=== PATIENT | female | born 1965 | race Caucasian/White ===

== ENCOUNTER → 2016-05-18 | Outpatient (CLI) | payer OTHER ==
--- NOTE | 2016-05-18 11:30 | REP ---
Chest x-ray: Two views. History: Flu and shortness of breath for 3 days. Comparison chest x-ray February 26, 2015. Findings: The lungs are well inflated and free of infiltrate. There is a zone of linear fibrosis in the posterior segment of the right upper lobe where the prior study showed a large dense pneumonia. There is a bone island in the anterior end of the right 7th rib unchanged. Pleural angles are sharp. Heart size is normal. Pulmonary vasculature is not increased. Impression: No active disease. Area of linear fibrosis right upper lobe. Signed by Robert Salas MD 05/18/2016 12:39 P
== END ==
LOC: M WUC 10:12
PROVIDERS: ATTEND Physician Assistant
DX: R06.02 Shortness of breath (principal); J09.X2 Influenza due to identified novel influenza A virus with other respiratory manifestations; J84.10 Pulmonary fibrosis, unspecified

== ENCOUNTER → 2016-12-26 | Outpatient (REF) | payer OTHER ==
[2016-12-26 11:47] LABS: MEAN CORPUSCULAR HEMOGLOBIN 31.9 pg (27.0-33.0); MEAN CORPUSCULAR HGB CONC 33.5 g/dl (32.0-36.5); MEAN CORPUSCULAR VOLUME 95.4 fl (80.0-96.0); RED CELL DISTRIBUTION WIDTH 12.4 % (11.5-14.5); WHITE BLOOD COUNT 4.8 K/mm3 (4.0-10.0)
[2016-12-26 12:07] LABS: ALBUMIN 4.1 GM/DL (3.2-5.2); ALBUMIN/GLOBULIN RATIO 1.32 (1.00-1.93); ALKALINE PHOSPHATASE 135 U/L (45-117); ALT/SGPT 28 U/L (12-78); ANION GAP 8 MEQ/L (8-16); AST/SGOT 18 U/L (15-37); BILIRUBIN,TOTAL 0.4 MG/DL (0.2-1.0); BLOOD UREA NITROGEN 6 MG/DL (7-18); CALCIUM LEVEL 8.6 MG/DL (8.5-10.1); CARBON DIOXIDE LEVEL 30 MEQ/L (21-32); CHLORIDE LEVEL 103 MEQ/L (98-107); CREATININE FOR GFR 0.76 MG/DL (0.55-1.02); GLOMERULAR FILTRATION RATE > 60.0 (>51); GLUCOSE, FASTING 69 MG/DL (70-105); MAGNESIUM LEVEL 2.4 MG/DL (1.8-2.4); POTASSIUM SERUM 4.5 MEQ/L (3.5-5.1); SODIUM LEVEL 141 MEQ/L (136-145); TOTAL PROTEIN 7.2 GM/DL (6.4-8.2)
[2016-12-26 12:08] LABS: VITAMIN B12 LEVEL 959 PG/ML
[2016-12-26 12:09] LABS: FOLATE > 24.0 NG/ML
== END ==
LOC: M SFHCPLAZ 08:21
PROVIDERS: ATTEND Nurse Practitioner Family
DX: E53.8 Deficiency of other specified B group vitamins (principal); K30 Functional dyspepsia; E55.9 Vitamin D deficiency, unspecified

== ENCOUNTER → 2017-01-26 | Outpatient (REF) | payer OTHER | LOC: M SFHCWAGY 13:00 | PROVIDERS: ATTEND Nurse Practitioner Family | DX: N94.9 Unspecified condition associated with female genital organs and menstrual cycle (principal); Z11.3 Encounter for screening for infections with a predominantly sexual mode of transmission ==

== ENCOUNTER → 2017-03-02 | Outpatient (CLI) | payer OTHER ==
--- NOTE | 2017-03-02 10:45 | REPMRS ---
Patient History The patient states she had a clinical breast exam in 02/24 Baseline Mammogram Patient is postmenopausal. Family history of ovarian cancer in sister under age 50 and breast cancer in mother under age 50. Excisional biopsy of the left breast, March 15, 2001. Digital Woman Screen Mammo: March 02, 2017 - Exam #: [id number] Bilateral CC and MLO view(s) were taken. Technologist: Dede aGlvan, Technologist FINDINGS: There are scattered fibroglandular densities. There has been no change in the appearance of the mammogram from the prior studies. There is a mild amount of residual fibroglandular tissue which is fairly symmetric. There is no interval development of dominant mass, architectural distortion, or clustered microcalcification suggestive of malignancy. ASSESSMENT: BI-RADS/ACR category 1 mammogram. Negative. Recommendation Routine screening mammogram in 1 year (for women over age 40). This mammogram was interpreted with the aid of an FDA-approved computer-aided dectection system. Electronically Signed By: Hunter Escobedo MD 03/02/17 [id number]
== END ==
LOC: M WHC 09:32
PROVIDERS: ATTEND Nurse Practitioner Family
DX: Z12.31 Encounter for screening mammogram for malignant neoplasm of breast (principal)

== ENCOUNTER → 2017-03-25 | Outpatient (CLI) | payer OTHER ==
--- NOTE | 2017-03-25 08:11 | PFTRPT ---
Tech: Iron GIFFORD RRT Age: 51 Sex: Female Race: Height: 64.00 Inches Weight: 144.00 Lbs BSA: 1.70 Diagnosis: J43.1 PULMONARY FUNCTION REPORT ORDERING PROVIDER: Macho Lobato DO DATE OF SERVICE: 03/25/17 SPIROMETRY: Pre and post bronchodilator study of excellent technical quality. The forced vital capacity is normal. The FEV1 is out of proportion. The obstructive index is, therefore, reduced. FLOW VOLUME LOOP: The expiratory limb of the flow volume loop is consistent with significant flow rate limitation. Favorable bronchodilator response is identified. LUNG VOLUMES: The total lung capacity is elevated. The residual volume suggests air trapping. DIFFUSION CAPACITY: The diffusion capacity is significantly reduced and does not correct for alveolar volume. HEMOGLOBIN: Hemoglobin was acceptable at 12.4. AIRWAY MECHANICS: Airway resistance is mildly elevated with a concomitant decrease in airway conductance. IMPRESSION: Severe obstructive ventilatory impairment with underlying air trapping and a diffusion capacity impairment, suggesting emphysema. Favorable bronchodilator response. MTDD
== END ==
LOC: M CARPUL 07:36
PROVIDERS: ATTEND Internal Medicine Pulmonary Disease
DX: J43.1 Panlobular emphysema (principal)

== ENCOUNTER → 2017-05-19 | Outpatient (REF) | payer OTHER ==
[2017-05-19 12:44] LABS: TOTAL 25(OH) VITAMIN D 54.6 NG/ML (30.0-100.0)
[2017-05-19 12:45] LABS: FOLATE 20.3 NG/ML; VITAMIN B12 LEVEL > 2000 PG/ML
== END ==
LOC: M SFHCPLAZ 09:08
DX: E55.9 Vitamin D deficiency, unspecified (principal); E53.8 Deficiency of other specified B group vitamins
CPT/HCPCS: 82746

== ENCOUNTER → 2017-06-22 | Outpatient (CLI) | payer OTHER | LOC: M RAD 10:07 | DX: R91.8 Other nonspecific abnormal finding of lung field (principal) ==

== ENCOUNTER 2017-07-02 09:11 | Day surgery (SDC) | payer OTHER ==
[2017-07-02] MEDS ORDERED: fentaNYL 100 MCG/2 ML INJECTION (J3010) As Ordered (09:20)
[2017-07-02] MEDS ORDERED: MIDAZOLAM INJ 2 MG/2 ML VIAL (J2250) As Ordered (09:21)
[2017-07-02] MEDS ORDERED: ROCURONIUM BROMIDE 50 MG/5 ML VIAL As Ordered (09:23)
[2017-07-02] MEDS ORDERED: ePHEDrine INJ 50 MG/ML VIAL As Ordered (09:28)
[2017-07-02] MEDS: LR 1,000 ML IV (09:30)
[2017-07-02] MEDS ORDERED: ONDANSETRON 4MG/2ML VIAL (J2405) As Ordered (10:39)
[2017-07-02] MEDS ORDERED: PROPOFOL 200 MG/20 ML VIAL As Ordered (10:39)
[2017-07-02] MEDS ORDERED: LIDOCAINE 2% INJ 100 MG/5 ML SDV (FOR ANES.) As Ordered (10:39)
[2017-07-02] MEDS ORDERED: dexameTHASONE 4 MG/ML 1ML VIAL (J1100) As Ordered (10:40)
[2017-07-02] MEDS: CETACAINE SPRAY 5GM As Ordered (10:41)
[2017-07-02] MEDS ORDERED: PHENYLephrine HCL 500 MCG/5 ML (100MCG/ML) SYRINGE (J2370) As Ordered (10:53)
[2017-07-02] MEDS: EPINEPHrine 1MG/10ML SYRINGE 1.5IN As Ordered (11:54)
[2017-07-02] MEDS: LIDOCAINE 1% SDV INJ 30 ML VIAL As Ordered (11:55)
[2017-07-02] MEDS: LIDOCAINE VISCOUS 2% SOLN 15ML UDC As Ordered (11:55)
[2017-07-02] MEDS: THROMBIN SOLN 5,000 UNITS VIAL As Ordered (11:55)
[2017-07-02] MEDS ORDERED: LR 1,000 ML IV (12:15)
[2017-07-02] MEDS ORDERED: fentaNYL 100 MCG/2 ML INJECTION (J3010) IV (12:15)
[2017-07-02] MEDS ORDERED: METOCLOPRAMIDE INJ 10MG/2ML VIAL (J2765) IV (12:15)
[2017-07-02] MEDS ORDERED: ONDANSETRON 4MG/2ML VIAL (J2405) IV (12:15)
[2017-07-02] MEDS ORDERED: MEPERIDINE INJ 25 MG/ML VIAL (J2175) IV (12:15)
[2017-07-02] MEDS ORDERED: PERCOCET 5MG/325MG TAB PO (12:15)
== END 2017-07-02 13:51 | disposition home or self-care (01) ==
LOC: M SDC 09:11
DX: R91.8 Other nonspecific abnormal finding of lung field (principal); J44.9 Chronic obstructive pulmonary disease, unspecified; R06.83 Snoring; Z87.891 Personal history of nicotine dependence; J34.1 Cyst and mucocele of nose and nasal sinus; M54.9 Dorsalgia, unspecified; Z79.899 Other long term (current) drug therapy; Z79.51 Long term (current) use of inhaled steroids
CPT/HCPCS: 31629

== ENCOUNTER → 2017-07-09 | Outpatient (REF) | payer OTHER ==
[2017-07-09 17:39] LABS: INR 0.88
[2017-07-09 18:28] LABS: PLATELET COUNT, AUTOMATED 243 10^3/uL (150-450)
== END ==
LOC: M LAB REF 16:53
DX: R91.8 Other nonspecific abnormal finding of lung field (principal)
CPT/HCPCS: 85049

== ENCOUNTER → 2017-07-29 | Outpatient (CLI) | payer OTHER ==
[~2017-07-29] MED LIST: LIDOCAINE 1% MDV 20ML VIAL As Ordered
== END ==
LOC: M RADPRO 08:59
DX: R91.8 Other nonspecific abnormal finding of lung field (principal); Z79.899 Other long term (current) drug therapy
CPT/HCPCS: 32405

== ENCOUNTER → 2018-02-17 | Outpatient (CLI) | payer OTHER | LOC: M RAD 10:32 | DX: R91.8 Other nonspecific abnormal finding of lung field (principal) ==

== ENCOUNTER 2018-03-11 05:55 | Day surgery (SDC) | payer OTHER ==
[~2018-03-11 05:55] MED LIST changes: -LIDOCAINE 1% MDV 20ML VIAL As Ordered; +LIDOCAINE 1% MDV 20ML VIAL SQ; +LR 1,000 ML IV
[2018-03-11] MEDS ORDERED: LIDOCAINE 1% MDV 20ML VIAL SQ (06:00)
[2018-03-11] MEDS ORDERED: LR 1,000 ML IV ×2 (07:00→10:00)
[2018-03-11] MEDS: THROMBIN SOLN 5,000 UNITS VIAL As Ordered (07:14)
[2018-03-11] MEDS: LIDOCAINE 1% SDV INJ 30 ML VIAL As Ordered (07:15)
[2018-03-11] MEDS: EPINEPHrine 1MG/10ML SYRINGE 1.5IN As Ordered (07:15)
[2018-03-11] MEDS: LIDOCAINE VISCOUS 2% SOLN 15ML UDC As Ordered (07:15)
[2018-03-11] MEDS ORDERED: LIDOCAINE 2% INJ 100 MG/5 ML SDV (FOR ANES.) As Ordered (07:20)
[2018-03-11] MEDS ORDERED: ONDANSETRON 4MG/2ML VIAL (J2405) As Ordered ×2 (07:20→11:09)
[2018-03-11] MEDS ORDERED: dexameTHASONE 4 MG/ML 1ML VIAL (J1100) As Ordered (07:20)
[2018-03-11] MEDS ORDERED: PROPOFOL 200 MG/20 ML VIAL As Ordered (07:20)
[2018-03-11] MEDS ORDERED: ROCURONIUM BROMIDE 50 MG/5 ML VIAL As Ordered (07:20)
[2018-03-11] MEDS ORDERED: fentaNYL 100 MCG/2 ML INJECTION (J3010) As Ordered ×2 (07:21→09:01)
[2018-03-11] MEDS ORDERED: MIDAZOLAM INJ 2 MG/2 ML VIAL (J2250) As Ordered (07:21)
[2018-03-11] MEDS: CETACAINE SPRAY 5GM As Ordered (07:43)
[2018-03-11] MEDS ORDERED: PHENYLephrine HCL 500 MCG/5 ML (100MCG/ML) SYRINGE (J2370) As Ordered (08:13)
[2018-03-11] MEDS ORDERED: NEOSTIGMINE 10 MG/10 ML VIAL (J2710) As Ordered (08:30)
[2018-03-11] MEDS ORDERED: GLYCOPYRROLATE INJ 0.2 MG/ML 2 ML VIAL As Ordered (08:30)
[2018-03-11] MEDS ORDERED: fentaNYL 100 MCG/2 ML INJECTION (J3010) IV (10:00)
[2018-03-11] MEDS ORDERED: ALBUTEROL SULFATE 2.5 MG/0.5 ML INH NEB SOLN As Ordered (10:01)
[2018-03-11] MEDS: ALBUTEROL SULFATE 2.5 MG/0.5 ML INH NEB SOLN INH (10:04)
[2018-03-11] MEDS: ONDANSETRON 4MG/2ML VIAL (J2405) IV (11:14)
[2018-03-11] MEDS ORDERED: ACETAMINOPHEN TAB 650MG DOSE (2X325MG) As Ordered (12:26)
[2018-03-11] MEDS: ACETAMINOPHEN TAB 650MG DOSE (2X325MG) PO (12:28)
[2018-03-11] MEDS ORDERED: LACTATED RINGER'S 1000 ML IV (12:30)
== END 2018-03-11 13:25 | disposition home or self-care (01) ==
LOC: M SDC 05:55
DX: C34.11 Malignant neoplasm of upper lobe, right bronchus or lung (principal); J44.9 Chronic obstructive pulmonary disease, unspecified; R06.83 Snoring; Z90.710 Acquired absence of both cervix and uterus; Z98.51 Tubal ligation status; Z87.891 Personal history of nicotine dependence
CPT/HCPCS: 31629

== ENCOUNTER 2018-03-18 14:20 | Outpatient (CLI) | payer OTHER | END 2018-03-31 | LOC: M CARPUL 14:20 | DX: C34.11 Malignant neoplasm of upper lobe, right bronchus or lung (principal) | CPT/HCPCS: 94060 ==

== ENCOUNTER → 2018-04-19 | Day surgery (SDC) | payer OTHER ==
[~2018-04-19] MED LIST changes: +ALBUTEROL SULFATE 2.5 MG/0.5 ML INH NEB SOLN INH; +D5W 1,000 ML IV; +EPINEPHrine 1MG/10ML SYRINGE 1.5IN As Ordered; +GLYCOPYRROLATE INJ 0.2 MG/ML 2 ML VIAL As Ordered; +KETOROLAC 60 MG/2 ML VIAL (J1885) As Ordered; -LIDOCAINE 1% MDV 20ML VIAL SQ; +LIDOCAINE 2% INJ 100 MG/5 ML SDV (FOR ANES.) As Ordered; +LIDOCAINE 4% INJ 5 ML AMP NEB; +METOCLOPRAMIDE INJ 10MG/2ML VIAL (J2765) As Ordered; +METOCLOPRAMIDE INJ 10MG/2ML VIAL (J2765) IV; +MIDAZOLAM INJ 2 MG/2 ML VIAL (J2250) As Ordered; +NEOSTIGMINE 10 MG/10 ML VIAL (J2710) As Ordered; +ONDANSETRON 4MG/2ML VIAL (J2405) As Ordered; +ONDANSETRON 4MG/2ML VIAL (J2405) IV; +PROPOFOL 200 MG/20 ML VIAL As Ordered; +ROCURONIUM BROMIDE 50 MG/5 ML VIAL As Ordered; +SUGAMMADEX SODIUM 500 MG/5 ML VIAL (BRIDION) As Ordered; +fentaNYL 100 MCG/2 ML INJECTION (J3010) As Ordered; +fentaNYL 100 MCG/2 ML INJECTION (J3010) IV
[2018-04-19] MEDS: LIDOCAINE VISCOUS 2% SOLN 15ML UDC As Ordered ×2 (10:06)
[2018-04-19] MEDS: THROMBIN SOLN 20,000 UNITS KIT As Ordered ×2 (10:06)
[2018-04-19] MEDS: LIDOCAINE 1% SDV INJ 30 ML VIAL As Ordered ×2 (10:06)
[2018-04-19] MEDS: CETACAINE SPRAY 5GM As Ordered ×2 (10:48)
== END | disposition home or self-care (01) ==
LOC: M SDC 10:30
DX: R59.0 Localized enlarged lymph nodes (principal); C34.11 Malignant neoplasm of upper lobe, right bronchus or lung; J43.1 Panlobular emphysema; Z87.891 Personal history of nicotine dependence; Z79.51 Long term (current) use of inhaled steroids; Z79.899 Other long term (current) drug therapy
CPT/HCPCS: 31652

== ENCOUNTER → 2018-04-22 | Outpatient (CLI) | payer OTHER ==
[~2018-04-22] MED LIST changes: -ALBUTEROL SULFATE 2.5 MG/0.5 ML INH NEB SOLN INH; -D5W 1,000 ML IV; -EPINEPHrine 1MG/10ML SYRINGE 1.5IN As Ordered; -GLYCOPYRROLATE INJ 0.2 MG/ML 2 ML VIAL As Ordered; -KETOROLAC 60 MG/2 ML VIAL (J1885) As Ordered; -LIDOCAINE 2% INJ 100 MG/5 ML SDV (FOR ANES.) As Ordered; -LIDOCAINE 4% INJ 5 ML AMP NEB; -LR 1,000 ML IV; -METOCLOPRAMIDE INJ 10MG/2ML VIAL (J2765) As Ordered; -METOCLOPRAMIDE INJ 10MG/2ML VIAL (J2765) IV; -MIDAZOLAM INJ 2 MG/2 ML VIAL (J2250) As Ordered; -NEOSTIGMINE 10 MG/10 ML VIAL (J2710) As Ordered; -ONDANSETRON 4MG/2ML VIAL (J2405) As Ordered; -ONDANSETRON 4MG/2ML VIAL (J2405) IV; +PROHANCE 279.3MG/ML 15ML VIAL (A9576) As Ordered; -PROPOFOL 200 MG/20 ML VIAL As Ordered; -ROCURONIUM BROMIDE 50 MG/5 ML VIAL As Ordered; -SUGAMMADEX SODIUM 500 MG/5 ML VIAL (BRIDION) As Ordered; -fentaNYL 100 MCG/2 ML INJECTION (J3010) As Ordered; -fentaNYL 100 MCG/2 ML INJECTION (J3010) IV
== END ==
LOC: M RAD 10:34
DX: C34.91 Malignant neoplasm of unspecified part of right bronchus or lung (principal); I73.9 Peripheral vascular disease, unspecified
CPT/HCPCS: A9576

== ENCOUNTER 2018-05-14 06:04 | Day surgery (SDC) | payer OTHER ==
[~2018-05-14] VITALS: Ht 165.1 cm; Wt 72.3 kg
[~2018-05-14 06:04] MED LIST changes: +ADV250INH; +MULT1TAB10 PO; +PROAAER10; -PROHANCE 279.3MG/ML 15ML VIAL (A9576) As Ordered; +SPIR1CAP INH; +VITA100067 PO; +VITA250011 PO; +VITA400C7 PO
[2018-05-14] MEDS ORDERED: LR 1,000 ML IV ONE (06:15)
[2018-05-14 06:31] LABS: HEMATOCRIT 39.2 % (36.0-47.0); HEMOGLOBIN 12.9 g/dl (12.0-15.5); MEAN CORPUSCULAR HEMOGLOBIN 31.7 pg (27.0-33.0); MEAN CORPUSCULAR HGB CONC 32.9 g/dl (32.0-36.5); MEAN CORPUSCULAR VOLUME 96.3 fl (80.0-96.0); PLATELET COUNT, AUTOMATED 267 10^3/uL (150-450); RED BLOOD COUNT 4.07 10^6/uL (4.00-5.40); WHITE BLOOD COUNT 5.1 10^3/uL (4.0-10.0)
[2018-05-14 06:46] LABS: INR 0.88
[2018-05-14 06:47] LABS: PARTIAL THROMBOPLASTIN TIME 38.4 SECONDS (25.4-37.6)
[2018-05-14] MEDS ORDERED: fentaNYL 100 MCG/2 ML INJECTION (J3010) As Ordered ONE (06:58)
[2018-05-14] MEDS ORDERED: ONDANSETRON 4MG/2ML VIAL (J2405) As Ordered ONE (06:58)
[2018-05-14] MEDS ORDERED: LIDOCAINE 2% INJ 100 MG/5 ML SDV (FOR ANES.) As Ordered ONE (06:58)
[2018-05-14] MEDS ORDERED: dexameTHASONE 4 MG/ML 1ML VIAL (J1100) As Ordered ONE (06:58)
[2018-05-14] MEDS ORDERED: MIDAZOLAM INJ 2 MG/2 ML VIAL (J2250) As Ordered ONE (06:58)
[2018-05-14] MEDS ORDERED: PROPOFOL 500 MG/50 ML VIAL As Ordered ONE (06:58)
[2018-05-14 07:00] LABS: BLOOD UREA NITROGEN 13 MG/DL (7-18); CALCIUM LEVEL 8.8 MG/DL (8.5-10.1); CARBON DIOXIDE LEVEL 29 MEQ/L (21-32); CHLORIDE LEVEL 104 MEQ/L (98-107); CREATININE FOR GFR 0.79 MG/DL (0.55-1.30); GLOMERULAR FILTRATION RATE > 60.0 (>51); GLUCOSE, FASTING 95 MG/DL (70-100); POTASSIUM SERUM 4.2 MEQ/L (3.5-5.1); SODIUM LEVEL 139 MEQ/L (136-145)
[2018-05-14] MEDS ORDERED: HEPARIN SOD (PORCINE) 5000 UNITS/ML VIAL As Ordered ONE (07:11)
[2018-05-14] MEDS ORDERED: BUPIVACAINE LIPOSOME/PF 1.3% 20ML VIAL (13.3MG/ML)(EXPAREL)(C9290 PER1MG) As Ordered ONE (07:11)
[2018-05-14] MEDS ORDERED: LIDOCAINE 1% SDV INJ 30 ML VIAL As Ordered ONE (07:11)
[2018-05-14 08:49] VITALS: BP 141/83
--- NOTE | 2018-05-14 09:05 | REP ---
Portable chest x-ray: Single view. History: Post placement. Comparison study: April 19, 2018. Findings: There is a Yfpgef-F-Koum catheter placed via the left subclavian vein region with its tip in the expected location of the superior vena cava. There are clips in the right perihilar region as before. There is no evidence of pneumothorax or hydrothorax. Heart size is normal. Lung barton are otherwise clear. Impression: Nxnspv-C-Bnle catheter via the left side. No complication identified. Electronically Signed by Robert Salas MD 05/14/2018 08:56 A
--- NOTE | 2018-05-14 09:16 | REP ---
CHEST X-RAY: Two views. HISTORY: Lung carcinoma. 12 seconds of fluoroscopy time is reported. FINDINGS: A sequence of two last image hold fluoroscopically obtained spot radiographs of the chest document left subclavian Vybngz-C-Kfjo catheter placement. Electronically Signed by Robert Salas MD 05/14/2018 09:26 A
--- NOTE | 2018-05-14 09:51 | RO ---
DATE OF PROCEDURE: 05/14/2018 PREPROCEDURE DIAGNOSIS: Lung cancer, in need of chemotherapy and vascular access. POSTPROCEDURE DIAGNOSIS: Lung cancer, in need of chemotherapy and vascular access. PROCEDURE: Insertion of left subclavian vein Power Port with fluoroscopic control. SURGEON: Dr. Keanu Cornejo. ONLINE MEDIA BUYER: ANESTHESIA: ESTIMATED BLOOD LOSS: FINDINGS: All contours were smooth at the end of the procedure. Port aspirated and flushed well and the catheter was placed at the junction of the SVC and the right atrium. PROCEDURE: Under satisfactory MAC anesthesia, patient was prepped and draped in the usual sterile fashion. The subclavian fossa was infiltrated with 1% lidocaine and the subclavian vein found on the first pass. Wire was passed. Wire position was confirmed with fluoro. Incision was made approximately 2 cm below the wire placement after infiltrating it with Exparel. A subcutaneous pocket was created in this patient with electrocautery and blunt dissection. The wire tract was incised, dilated and a Peel-Away introducer placed. Catheter was placed with loaded numbers down into the right atrium. Tunnel was created with a tunneling device and the catheter pulled through the tunnel and positioned by fluoroscopic control at the junction of the right atrium and the superior vena cava. Catheter was cut to an appropriate size. Collar was placed and connected to the Power Port. The Power Port was secured to the chest wall with two #2-0 silk sutures. It was then flushed with heparinized saline followed by final flush of 100 units/mL of heparinized saline. Final pictures were taken and all contours were found to be smooth and the catheter in good position. The subcutaneous tissues were closed with running #3-0 Vicryl sutures and the skin closed with running #4-0 Monocryl subcuticular suture. Patient tolerated the procedure well and left the operating room in satisfactory condition to the recovery room.
== END 2018-05-14 08:49 | disposition home or self-care (01) ==
LOC: M SDC 06:04
PROVIDERS: ATTEND Thoracic Surgery (Cardiothoracic Vascular Surgery)
DX: C34.11 Malignant neoplasm of upper lobe, right bronchus or lung (principal); C34.12 Malignant neoplasm of upper lobe, left bronchus or lung; Z45.2 Encounter for adjustment and management of vascular access device; R59.0 Localized enlarged lymph nodes; J43.1 Panlobular emphysema; Z87.891 Personal history of nicotine dependence
CPT/HCPCS: 36415; 36561; 71045; 76000; 80048; 85027; 85610; 85730; C1788; C9290; J0690; J1100; J2250; J2405; J3010

== ENCOUNTER → 2018-05-26 | Outpatient (CLI) | payer OTHER ==
[~2018-05-26] MED LIST changes: +LIDO2.5C15 TOP
--- NOTE | 2018-05-27 00:56 | REP ---
Clinical: Malignancy . Comparison: 05/14/2018 . Technique: PA and lateral. Findings: The mediastinum and cardiac silhouette are normal. Pggzvb-Z-Wrzb identified with tip in the SVC. Two surgical clips overlie the right mid lung zone. The lung barton are clear and without acute consolidation, effusion, or pneumothorax. The skeletal structures are intact and normal. Impression: 1. No acute cardiopulmonary process. Electronically Signed by Suraj Castañeda MD 05/27/2018 12:47 A
== END ==
LOC: M SMT 13:09
PROVIDERS: ATTEND Thoracic Surgery (Cardiothoracic Vascular Surgery)
DX: C34.11 Malignant neoplasm of upper lobe, right bronchus or lung (principal)

== ENCOUNTER → 2018-07-12 | Outpatient (CLI) | payer OTHER ==
[~2018-07-12] MED LIST changes: +ISOVUE-370 76% 100ML VIAL (Q9967) As Ordered ONE
--- NOTE | 2018-07-12 22:05 | REP ---
Clinical: Restaging lung cancer. Technique: Axial contrast enhanced images from the thoracic inlet to the upper abdomen with coronal and sagittal re-formations using 100 ml Isovue 370 intravenous contrast material. Comparison: 02/17/2018. Findings: The bilateral nodules and mass lesions on prior examination have all regressed when compared to current examination. However, the current examination does demonstrate few small new areas of concern including left upper lobe (images 17, 24). No further significant consolidation, effusion, or pneumothorax. Tracheobronchial tree is patent. No adenopathy. Normal thoracic aorta, pulmonary vasculature and heart/pericardium noted. Cyasea-Y-Dgjh identified in the left anterior chest wall with tip in the SVC/right atrium. Musculoskeletal structures are intact and without significant abnormality. Benign hemangiomas in the thoracic vertebral bodies noted and stable. Impression: The previously identified scattered nodules/mass lesions have all regressed. Few new areas of concern are identified and warrant continued follow-up. No adenopathy. No effusion. Electronically Signed by Suraj Castañeda MD 07/12/2018 09:57 P
== END ==
LOC: M RAD 15:32
PROVIDERS: ATTEND Internal Medicine Hematology & Oncology
DX: C34.90 Malignant neoplasm of unspecified part of unspecified bronchus or lung (principal); D18.09 Hemangioma of other sites
CPT/HCPCS: 71260; Q9967

== ENCOUNTER → 2018-09-01 | Outpatient (REF) | payer OTHER ==
[~2018-09-01] MED LIST changes: +DOXY150T9 PO; -ISOVUE-370 76% 100ML VIAL (Q9967) As Ordered ONE; +SYNT25TA PO; +SYNT50TA PO
[2018-09-01 15:08] LABS: FREE T4 0.44 NG/DL (0.76-1.46)
== END ==
LOC: M LAB REF 13:17
PROVIDERS: ATTEND Nurse Practitioner Family
DX: E03.2 Hypothyroidism due to medicaments and other exogenous substances (principal)

== ENCOUNTER → 2018-11-10 | Outpatient (CLI) | payer OTHER ==
--- NOTE | 2018-11-10 10:57 | REP ---
Clinical: History of thyroid cancer with elevated thyroid levels. Technique: Real time banks scale and color evaluation using linear high frequency transducer. Findings: Thyroid gland is diffusely heterogeneous without significant enlargement. Isthmus measures 5 mm in width. Right lobe measures 3.8 x 1.5 x 1.6 cm and includes to possible subtle small mid pole hypoechoic nodules measuring 9 x 7 x 6 mm and 8 x 4 x 8 mm. Left lobe measures the 0.6 x 1.2 x 1.3 cm without nodule or focal abnormality. Impression: Heterogeneous thyroid gland with two small nonspecific nodules in the right lobe. Electronically Signed by Suraj Castañeda MD 11/10/2018 10:48 A
== END ==
LOC: M RAD 08:05
PROVIDERS: ATTEND Nurse Practitioner Family
DX: E04.9 Nontoxic goiter, unspecified (principal)

== ENCOUNTER → 2019-01-19 | Outpatient (REF) | payer OTHER ==
[2019-01-19 14:16] LABS: FREE T4 1.31 NG/DL (0.76-1.46); THYROID STIMULATING HORMONE 0.294 uIU/ML (0.358-3.740); TOTAL 25(OH) VITAMIN D 22.4 NG/ML (30.0-100.0)
== END ==
LOC: M LAB REF 13:30
PROVIDERS: ATTEND Nurse Practitioner Family
DX: E55.9 Vitamin D deficiency, unspecified (principal); E03.2 Hypothyroidism due to medicaments and other exogenous substances

== ENCOUNTER → 2019-01-20 | Outpatient (CLI) | payer OTHER ==
[~2019-01-20] MED LIST changes: +ISOVUE-370 76% 100ML VIAL (Q9967) As Ordered ONE
--- NOTE | 2019-01-20 18:28 | REP ---
CT chest with IV contrast: History: Restaging lung carcinoma. Comparison chest CT study September 27, 2018. July 12, [address] is also reviewed. CT contrast dose: 100 ml of intravenous Isovue 370. CT findings: There is no evidence of hilar or mediastinal mass. No adrenal lesion is seen. No pleural or pericardial effusion is appreciated. There are three hypervascular areas of enhancement in the liver. Two of these are unchanged from February 2015 and are compatible with hemangioma. The third is not within the imaging field of view of that prior study. It is visible however on abdominal CT study from November 20, 2014. This is felt to be unchanged. The visualized upper abdominal structures are otherwise unremarkable. There is some linear fibrosis in the right middle lobe. A stable irregular nodular opacity is seen adjacent to the fiducial marker clips in the right upper lobe. This is unchanged from multiple prior studies. The recently identified 8 mm nodule in the left upper lobe is again seen on today's page 20 of 116 in series 201. This is unchanged from September 27, 2018. The nodule identified in the right apex as a new nodule on September 27, 2018 has regressed and appears curvilinear. There is a nodular opacity in the left apex 6 mm in diameter which was present previously on July 12, 2018, had regressed on September 27, 2018, and now appears to have recurred. There are emphysematous changes in the upper lobes. There are tiny nodular opacities unchanged in the subpleural left upper lobe consistent with fibrosis. No other new nodule is appreciated. Impression: Atypical and waxing and waning nodularity in the apices and upper lobes bilaterally. Emphysematous changes are noted. Hematogenous metastases are more typically lower lobe in distribution. Question inflammatory etiology. In any event, the largest nodule in the left upper lobe is 8 mm and it is unchanged from the most recent prior study. Electronically Signed by Robert Salas MD 01/20/2019 07:29 P
== END ==
LOC: M RAD 17:23
PROVIDERS: ATTEND Internal Medicine Hematology & Oncology
DX: C34.91 Malignant neoplasm of unspecified part of right bronchus or lung (principal)
CPT/HCPCS: 71260; Q9967

== ENCOUNTER → 2019-04-13 | Outpatient (REF) | payer OTHER ==
[~2019-04-13] MED LIST changes: +CLAR10CA3 PO; -ISOVUE-370 76% 100ML VIAL (Q9967) As Ordered ONE; +SYNT88TA2 PO
[2019-04-13 14:31] LABS: FREE T4 1.33 NG/DL (0.76-1.46); THYROID STIMULATING HORMONE 1.45 uIU/ML (0.358-3.740); TOTAL 25(OH) VITAMIN D 44.2 NG/ML (30.0-100.0)
== END ==
LOC: M LAB REF 13:33
PROVIDERS: ATTEND Nurse Practitioner Family
DX: E03.2 Hypothyroidism due to medicaments and other exogenous substances (principal)

== ENCOUNTER → 2019-06-09 | Outpatient (CLI) | payer MEDICAID ==
[~2019-06-09] MED LIST changes: +HYDR-3363 PO; +ONE-TAB3 PO
--- NOTE | 2019-06-11 11:12 | RADONC ---
RADIATION ONCOLOGY CONSULTATION NOTE DATE: 06/09/2019 CHART NUMBER: [id number] DIAGNOSIS: Right upper lobe lung cancer. STAGE: IIIA, T1, N2, M0. ECOG PERFORMANCE STATUS: 0. CONSULTATION NOTE: Ms. 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 HISTORY OF PRESENT ILLNESS: The patient was in her usual state of health until the summer when she began developing increasing shortness of breath. She presented to her primary care physician and underwent a series of workup including pulmonary function tests which at that time showed an FEV-1 of 1.43 and a diffusion capacity is 64%. Routine CT scan was done in March 2018 which showed an abnormal nodule in the right upper lobe. PET/CT done on 03/24/2018 confirmed a 1 cm spiculated nodule in the right lung with an SUV value of 4.3. There was a santa mass in the subcarinal region extending to the right hilum with an SUV value of 11.2. This measured 3.5 x 1 cm. No evidence of metastatic disease was seen. On 03/11/2018 the patient underwent a right upper lobe bronchoscopic biopsy and fine needle cell block. Pathology revealed a poorly differentiated non-small cell carcinoma consistent with an adenocarcinoma of lung primary. A left upper lobe biopsy was also undertaken and found no evidence of malignancy. Subsequent biopsy on 04/19/2018 of a subcarinal lymph node showed poorly differentiated adenocarcinoma. The patient was seen by medical [facility]. At that time he noted that the patient has a history of waxing and waning pulmonary nodules multiple which have been biopsied and shown to be inflammatory tissue suggestive of granulomas. The patient has continued her followup and treatment in our medical oncology division and has been receiving Keytruda. She has done quite well. She recently has changed medical oncologists and is now being seen by Dr. Amandeep Chao MD who noted that her initial stage was thought to be a stage IIIA and wondered if she might not qualify for definitive external beam radiation therapy combined with chemotherapy as a therapeutic option. She is now being referred to me for that. PAST MEDICAL HISTORY: The patient's past medical history is positive for thyroid problems and COPD. She had bilateral foot surgeries as well as a hysterectomy and polyps removed from her sinuses. She had a tubal ligation in the past. ALLERGIES: The patient has no known drug allergies. SOCIAL HISTORY: The patient had smoked one pack of cigarettes per day for approximately 21 years. She quit 5 years ago. She drinks alcohol socially. FAMILY HISTORY: The patient's family history is positive for a mother with some type of bone cancer and a sister with ovarian cancer. REVIEW OF SYSTEMS: The patient's review of systems is positive for some shortness of breath and occasional headaches. It is otherwise noncontributory. She denies nausea, vomiting, fevers, chills, night sweats, diplopia, headaches, anxiety or depression, anorexia, weight loss, visual disturbances, chest pain, urinary or bowel difficulties, bone pain, or neurological problems. PHYSICAL EXAMINATION: The patient is a well-developed, well-nourished, female in no acute distress. HEENT exam is normocephalic, atraumatic. Extraocular movements are intact. There is no palpable cervical, supraclavicular, infraclavicular, axillary, or inguinal lymphadenopathy present. Lungs are clear to auscultation and percussion. Heart has a regular rate and rhythm. Abdomen is benign with no hepatosplenomegaly, masses, or tenderness. Skeletal examination reveals no tenderness to pressure or percussion of the bony skeleton. Extremities reveal no clubbing, cyanosis, or edema. Neurologic exam is grossly intact, as is the remainder of the physical examination. ASSESSMENT: At this point I cannot make a recommendation. Her last pulmonary function test that I can find was done on March 31, 2018. Clearly this would need to be repeated prior to any evaluation on whether or not the patient could tolerate radiation to the lungs, especially with a history of inflammation issues. I am therefore ordering new pulmonary functions to be undertaken. I have not seen a PET done since March of 2018. I am therefore ordering a new PET scan. The last CT scan available apparently was done in January 2019. Once again prior to making any recommendations. We need to evaluate this patient for present state of disease. Clearly if we now have metastatic disease then radiation would not be indicated except for palliative reasons. I am ordering a PET scan to further evaluate her at this time for staging prior to discussion of definitive treatment. In addition I am ordering pulmonary functions and a differential lung scan in order to see whether or not radiation can even be tolerated. I have scheduled the patient to come back to me for re-consultation once these studies are undertaken and we will undergo a full discussion. Again indeed, I am ordering an MRI of the brain since I do not see that any had been done since initial staging on April 22, 2018. Indeed the patient now is complaining of headaches and I think this would be an appropriate test order as well. Thank you for allowing us to participate in the care of this very pleasant woman. If I could be of any further assistance or provide you any information, please free to contact me anytime.
== END ==
LOC: M ONCR 08:58
PROVIDERS: ATTEND Radiology Radiation Oncology
DX: C34.11 Malignant neoplasm of upper lobe, right bronchus or lung (principal)

== ENCOUNTER → 2019-06-15 | Outpatient (CLI) | payer OTHER ==
[~2019-06-15] MED LIST changes: +GASTROGRAFIN SOLUTION 30ML (Q9963) As Ordered ONE; +ISOVUE-370 76% 100ML VIAL (Q9967) As Ordered ONE; +SYNT100T PO
--- NOTE | 2019-06-16 16:00 | REP ---
Clinical: Lung cancer staging. Technique: Axial contrast enhanced images from the thoracic inlet to the upper abdomen with coronal and sagittal re-formations using 100 ml Isovue 370 intravenous contrast material. Comparison: 01/20/2019. Findings: Few nodules primarily noted in the bilateral apices are again identified and slightly decreased in size from prior examination. As example, the largest lesion in the left upper lobe previously measured 9 mm and currently measures 6 mm maximal diameter. Underlying chronic emphysematous changes along with the scattered scarring unchanged. Two surgical clips are identified in the right upper lobe with minimal stable surrounding scarring and no evidence for focal recurrence. No new nodule, consolidation, or mass lesion appreciated. No effusion. No pneumothorax. Tracheobronchial tree is patent. Right hilar lymph node measuring 14 mm unchanged and no further adenopathy is noted. Further evaluation of the mediastinum demonstrates stable atherosclerotic changes to the thoracic aorta and coronary arteries without aortic aneurysm or cardiomegaly. No pericardial effusion. Moderate hiatal hernia. Impression: 1. Previously identified nodules in the upper lobes are minimally decreased in size. No new nodule or mass lesion appreciated. 2. Chronic emphysematous disease and stable changes. Electronically Signed by Suraj Castañeda MD 06/16/2019 03:51 P
--- NOTE | 2019-06-16 16:06 | REP ---
Nickel: Lung cancer restaging. Technique: Axial contrast enhanced images of the abdomen using oral (per protocol) and 100 ml Isovue 370 intravenous contrast material with coronal and sagittal re-formations. Comparison: 11/20/2014 Findings: Hepatic steatosis suggested without focal hepatic lesion. Spleen, pancreas, gallbladder, bilateral adrenal glands and kidneys are normal. The enteric system demonstrates small to moderate hiatal hernia. No obvious obstruction or acute inflammatory process to the visualized small large bowel. No ascites. No free air. No adenopathy. Abdominal aorta and vasculature without aneurysm or dissection. Musculoskeletal structures without focal osseous abnormality. Impression: 1. Hepatic steatosis. 2. Hiatal hernia. 3. No further acute abdominal pathology appreciated. Electronically Signed by Suraj Castañeda MD 06/16/2019 03:57 P
== END ==
LOC: M RAD 16:44
PROVIDERS: ATTEND Internal Medicine Hematology & Oncology
DX: C34.91 Malignant neoplasm of unspecified part of right bronchus or lung (principal)
CPT/HCPCS: 71260; 74160; Q9963; Q9967

== ENCOUNTER → 2019-06-20 | Outpatient (CLI) | payer OTHER ==
[~2019-06-20] MED LIST changes: -GASTROGRAFIN SOLUTION 30ML (Q9963) As Ordered ONE; -ISOVUE-370 76% 100ML VIAL (Q9967) As Ordered ONE
--- NOTE | 2019-06-20 09:42 | REP ---
Clinical: History of lung cancer . Comparison: 05/26/2018 . Technique: PA and lateral. Findings: The mediastinum and cardiac silhouette are normal. Wmbucr-V-Hzmk with tip in the SVC. 12 mm left upper lobe nodule cannot be excluded. Remainder examination demonstrates stable chronic interstitial changes. The skeletal structures are intact and normal. Impression: 1. Possible 12 mm left upper lobe nodule Electronically Signed by Suraj Castañeda MD 06/20/2019 09:33 A
--- NOTE | 2019-06-20 11:35 | REP ---
DIFFERENTIAL LUNG SCAN: HISTORY: Lung carcinoma. TECHNIQUE: 1.0 mCi technetium 99m MAA is given intravenously for the perfusion study and is followed by a 2.0 mCi dose of technetium-99m DTPA aerosol for the ventilation study. Anterior and posterior planar images are acquired for each portion of the study. Each lung is "segmented" into upper, mid, and lower thirds. Time activity curves from these segmental regions is available for detailed review on the PACS system. RESULTS: Overall differential lung function for the perfusion study is 50% left and 50% right. Differential lung function for the ventilation portion of the study is quite symmetric as well 51% left and 49% right. Ventilation study shows central bronchial airway deposition of tracer consistent with some degree of COPD. The perfusion study shows more homogeneous uptake. Electronically Signed by Robert Salas MD 06/20/2019 05:24 P
== END ==
LOC: M RAD 09:05
PROVIDERS: ATTEND Radiology Radiation Oncology
DX: C34.11 Malignant neoplasm of upper lobe, right bronchus or lung (principal)
CPT/HCPCS: 71046; 78598; A9540; A9567

== ENCOUNTER → 2019-06-22 | Outpatient (CLI) | payer OTHER ==
--- NOTE | 2019-06-22 10:07 | PFTRPT ---
Site: [facility], [address] [place], [address] ID: [id number] Name: MYNOR PRASAD Visit Date: 06/22/2019 Second ID: [id number] Referring Doctor: MD Gottlieb Daniel Reviewing Doctor: Blue Agrawal MD Complaint Operator: Aida Wallis Age: 53 : 1965 Sex: Female Race: Height: 65.50 Inches Weight: 164.00 Lbs BSA: 1.83 Order IDs: [id number] Requested Test(s): <RESP-PFT.DLCO> Diagnosis: C34.11 test meet the ATS standards for acceptability and repeatability. Pt was given four puffs of albuterol for postbronchodilator. Review Status: Not Reviewed Pre-Bronch Post-Bronch Pred Actual %Pred Actual %Chng SPIROMETRY FVC (L) 3.62 2.26 62 2.79 23 FEV1 (L) 2.83 1.10 38 1.39 26 FEV1/FVC (%) 79 49 61 50 2 FEF 25% (L/sec) 5.26 1.21 23 1.97 62 FEF 50% (L/sec) 3.78 0.48 12 0.88 81 FEF 75% (L/sec) 1.33 0.17 13 0.41 133 FEF 25-75% (L/sec) 2.65 0.39 14 0.80 104 FEF Max (L/sec) 6.77 2.29 33 2.87 25 FIVC (L) 2.27 2.79 23 FIF 50% (L/sec) 3.64 2.95 81 3.44 16 FIF Max (L/sec) 2.97 3.55 19 MVV (L/min) 97 45 46 Expiratory Time (sec) 10.42 11.51 10 Back Extrap Vol (L) 0.08 0.06 -23 Time To FEFmax (sec) 0.124 0.102 -17 LUNG VOLUMES SVC (L) 3.32 2.80 84 IC (L) 2.30 2.38 103 ERV (L) 1.02 0.41 40 TGV (L) 2.98 4.45 149 RV (Pleth) (L) 1.96 4.04 206 TLC (Pleth) (L) 5.28 6.84 129 RV/TLC (Pleth) (%) 37 59 159 DIFFUSION DLCOunc (ml/min/mmHg) 22.79 12.77 56 DLCOcor (ml/min/mmHg) 22.79 14.22 62 DL/VA (ml/min/mmHg/L) 4.32 3.45 79 VA (L) 5.28 4.12 78 BHT (sec) 10.55 IVC (L) 2.66 TLC (SB) (L) 4.27 AIRWAYS RESISTANCE Raw (cmH2O/L/s) 1.86 2.83 152 Gaw (L/s/cmH2O) 1.03 0.36 34 sRaw (cmH2O*s) 4.76 11.93 250 sGaw (1/cmH2O*s) 0.20 0.09 42 BLOOD GASES Hgb (gm/dL) 10.5
== END ==
LOC: M CARPUL 09:26
PROVIDERS: ATTEND Radiology Radiation Oncology
DX: C34.11 Malignant neoplasm of upper lobe, right bronchus or lung (principal)

== ENCOUNTER → 2019-06-23 | Outpatient (CLI) | payer OTHER ==
[~2019-06-23] MED LIST changes: +PROHANCE 279.3MG/ML 15ML VIAL (A9576) As Ordered ONE
--- NOTE | 2019-06-23 20:28 | REPVR ---
PROCEDURE INFORMATION: Exam: MR Head Without and With Contrast Exam date and time: 06/23/2019 5:45 PM Age: 54 years old Clinical indication: Condition or disease; History of cancer (specify primary cancer site): ; Primary cancer: Lung; Additional info: Lung CA, eval for mets TECHNIQUE: Imaging protocol: MR of the head without and with intravenous contrast. Contrast material: PROHANCE; Contrast volume: 15 ml; Contrast route: IV; COMPARISON: MRI-Brain W/O FOLL BY WITH 04/22/2018 10:48 AM FINDINGS: Brain: There is no acute cortical infarction, intracranial hemorrhage or mass. On the FLAIR sequence hyperintensities are again seen in the left insular cortex as well as the anterior margins of both external capsules and periventricular white matter and foci throughout the centrum semiovale including subcortical similar in appearance to 04/22/2018 MRI. There is no abnormal contrast enhancement. Ventricles: Normal. No ventriculomegaly. Bones/joints: Unremarkable. Soft tissues: Unremarkable. Sinuses: There is evidence of prior paranasal sinus surgery with residual fluid in the remaining air cells. Mastoid air cells: Normal as visualized. No mastoid effusion. Orbits: Unremarkable. IMPRESSION: 1. No evidence of brain metastases. 2. No acute cerebral infarction or intracranial hemorrhage. Stable white matter lesions are seen on the FLAIR sequence in comparison to 04/22/2018 MRI. 3. Evidence of prior paranasal sinus surgery with fluid layering in the residual anterior ethmoid and frontal air cells as well as a small air-fluid level in the right maxillary antrum. Electronically signed by: Alice Kang On 06/23/2019 20:27:22 PM
== END ==
LOC: M RAD 16:16
PROVIDERS: ATTEND Radiology Radiation Oncology
DX: C34.11 Malignant neoplasm of upper lobe, right bronchus or lung (principal)
CPT/HCPCS: 70553; A9576

== ENCOUNTER → 2019-07-06 | Outpatient (CLI) | payer MEDICAID ==
[~2019-07-06] MED LIST changes: -PROHANCE 279.3MG/ML 15ML VIAL (A9576) As Ordered ONE
--- NOTE | 2019-07-06 11:50 | REP ---
PET/CT: HISTORY: Monitoring response to therapy right upper lobe lung carcinoma. Poorly differentiated adenocarcinoma. Subcarinal adenopathy. COMPARISONS: Comparison PET/CT study March 24, 2018 was done at an outside facility. TECHNIQUE: 45 minutes following the intravenous injection of a 8.70 mCi dose of F-18 FDG, three-dimensional PET scintigraphy is acquired from the skull base to the proximal thighs. Triplanar noncontrast CT scanning is acquired through the same anatomic range for attenuation correction, and image registration with scan parameters optimized to minimize radiation exposure to the patient. PET scintigraphy and CT datasets were fused and displayed on a workstation with multiplanar and projection display capability. PET/CT FINDINGS: Head and neck soft tissues are unremarkable. There is no evidence of supraclavicular lymphadenopathy. The previously noted subcarinal lymphadenopathy is no longer apparent and there is no longer hypermetabolic mediastinal activity. The nodular opacity in the right upper lobe of the lung which was seen previously is dramatically improved morphologically. There is no longer hypermetabolic uptake here. Below the diaphragms, there is normal distribution of radiotracer. No abnormal adrenal uptake is seen. No abnormal hypermetabolic uptake is seen in the abdomen or pelvis. IMPRESSION: Negative PET scintigraphy. The previously noted hypermetabolic subcarinal adenopathy in right upper lobe nodule have resolved. The right upper lobe nodule is much improved. The subcarinal adenopathy is no longer visible. Electronically Signed by Robert Salas MD 07/06/2019 07:32 P
== END ==
LOC: M PLARAD 07:29
PROVIDERS: ATTEND Internal Medicine Hematology & Oncology
DX: C34.11 Malignant neoplasm of upper lobe, right bronchus or lung (principal)
CPT/HCPCS: 78815; A9552

== ENCOUNTER → 2019-07-12 | Outpatient (CLI) | payer OTHER ==
--- NOTE | 2019-07-14 10:04 | RADONC ---
RADIATION ONCOLOGY PROGRESS NOTE DATE: CHART NUMBER: [id number] DIAGNOSIS: Right upper lobe lung cancer. STAGE: IIIA, T1, N2, M0. ECOG PERFORMANCE STATUS: 0. FOLLOWUP NOTE: Ms. 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 Since her last visit I had ordered multiple tests to be undertaken. The first was a PET scan which was done on 07/06/2019 which was a negative PET. All previously noted hypermetabolic subcarinal adenopathy and right upper lobe nodule hypermetabolic activity has resolved. The right middle lobe has much improved. In addition I ordered an MRI of the brain which was done on 06/23/2019 and showed no evidence of brain metastases. A differential lung scan was done on 06/20/2019 and showed perfusion function 50% on the right and 50% on the left and ventilation function 51% on the left and 49% on the right. Pulmonary function tests were done on 06/22/2019 and showed an FEV-1 of 1.1 and a diffusion capacity of 56%. The patient is now returning to discuss these findings and to see whether or not she would be a candidate thus far for radiation therapy to these sites. REVIEW OF SYSTEMS: The patient's review of systems is noncontributory. She is generally feeling quite well. She denies nausea, vomiting, fevers, chills, night sweats, diplopia, headaches, anxiety or depression, anorexia, weight loss, visual disturbances, chest pain, urinary or bowel difficulties, bone pain, or neurological problems. PHYSICAL EXAMINATION: The patient is a well-developed, well-nourished, female in no acute distress. HEENT exam is normocephalic, atraumatic. Extraocular movements are intact. There is no palpable cervical, supraclavicular, infraclavicular, axillary, or inguinal lymphadenopathy present. Lungs are clear to auscultation and percussion. Heart has a regular rate and rhythm. Abdomen is benign with no hepatosplenomegaly, masses, or tenderness. Skeletal examination reveals no tenderness to pressure or percussion of the bony skeleton. Extremities reveal no clubbing, cyanosis, or edema. Neurologic exam is grossly intact, as is the remainder of the physical examination. ASSESSMENT: I had a lengthy discussion with this patient and let her know that I have been talking on a daily basis with her medical oncologist, Dr. Chao. Dr. Chao and I have reviewed her multiple CT scans and PET scans going back several years which had showed waxing and waning of these pulmonary nodules on both the right and the left. Multiple biopsies were undertaken and were nondiagnostic. I explained to the patient that she has done quite well on the Keytruda and we have had an excellent response. I made clear to her that Keytruda, however, is not curative treatment and she has not had definitive therapy to her primary site and lymph nodes. I explained that from the studies we have done and reviewing her PET scans and CAT scans I believe she may be a candidate for definitive external beam radiation therapy. I have discussed the logistics of treatment planning, simulation and subsequent fractionated daily radiation treatments. I am recommending at this time that we undertake simulation and initiation of treatment planning. From our treatment planning we will be able to develop a dose volume histogram. Comparison of our dose volume histogram with her differential lung scan and pulmonary function tests will assist us in being able to determine her post-treatment pulmonary capacity. Once we have accomplished that the patient will be brought back into discuss whether or not she wants radiation. [id number] is important and unless this treatment is safe I would not recommend it. Once again in order to provide her every opportunity for definitive treatment I am recommending the development of a dose volume histogram and put together a plan to overall evaluate her breathing ability post treatment. Dr. Chao has set her up for a second opinion consultation at [facility] in [place]. I wholeheartedly agree and look forward to their expert opinion on this case. The patient has asked not to start radiation until after her consultation in [place] and I agree. This should not delay, however, our simulation and treatment planning since the more information we have the clearer our choices will be. cc: Amandeep Chao MD
== END ==
LOC: M ONCR 09:56
PROVIDERS: ATTEND Radiology Radiation Oncology
DX: C34.11 Malignant neoplasm of upper lobe, right bronchus or lung (principal)

== ENCOUNTER → 2019-07-22 | Outpatient (REF) | payer OTHER ==
[2019-07-22 13:42] LABS: FREE T4 1.38 NG/DL (0.76-1.46); THYROID STIMULATING HORMONE 0.643 uIU/ML (0.358-3.740); TOTAL 25(OH) VITAMIN D 33.9 NG/ML (30.0-100.0)
== END ==
LOC: M SFHCPLAZ 11:32
PROVIDERS: ATTEND Nurse Practitioner Family
DX: E03.2 Hypothyroidism due to medicaments and other exogenous substances (principal)

== ENCOUNTER → 2019-08-09 | Outpatient (RCR) | payer OTHER ==
--- NOTE | 2019-07-21 09:11 | RADONC ---
RADIATION ONCOLOGY SIMULATION NOTE DATE: 07/20/2019 CHART NUMBER: [id number] Ms. Cedeño was taken to the CT scan for CT simulation of her lung and mediastinal barton. CT was accomplished without difficulty or discomfort. Radiation treatment planning is underway and radiation treatments will begin subsequently. An immobilization device was created and will be used throughout the course of treatment. It was created without difficulty or discomfort. I was physically present throughout the course of CT simulation.
--- NOTE | 2019-08-08 15:16 | RADONC ---
RADIATION ONCOLOGY PROGRESS NOTE DATE: 08/08/2019 CHART NUMBER: [id number] PROGRESS NOTE: Ms. Cedeño is presently at a dose of 600 cGy to her right lung and is tolerating treatments quite well at this point with no complaints related to her radiation therapy. She is having no increased difficulty breathing or swallowing. REVIEW OF SYSTEMS: The patient's review of systems is noncontributory. Denies nausea, vomiting, fevers, chills, night sweats, diplopia, headaches, anxiety or depression, anorexia, weight loss, visual disturbances, chest pain, urinary or bowel difficulties, bone pain, or neurological problems. PHYSICAL EXAMINATION: The patient's skin is in good condition with no evidence of moist or dry desquamation. The remainder of her physical exam remains unchanged. Ms. Cedeño is tolerating treatments quite well and radiation will continue as scheduled.
[~2019-08-09] MED LIST changes: +DEXA4TA PO; +ONDA8TAB10 PO
== END ==
LOC: M ONCR 07-20 10:27
PROVIDERS: ATTEND Radiology Radiation Oncology
DX: C34.11 Malignant neoplasm of upper lobe, right bronchus or lung (principal)

== ENCOUNTER → 2019-08-23 | Outpatient (REF) | payer OTHER ==
[2019-08-23 11:21] LABS: FREE T4 1.19 NG/DL (0.76-1.46); THYROID STIMULATING HORMONE 2.97 uIU/ML (0.358-3.740)
== END ==
LOC: M PLALAB 08:36
PROVIDERS: ATTEND Nurse Practitioner Family
DX: E03.2 Hypothyroidism due to medicaments and other exogenous substances (principal)

== ENCOUNTER → 2019-09-08 | Outpatient (RCR) | payer OTHER ==
--- NOTE | 2019-08-16 07:54 | RADONC ---
RADIATION ONCOLOGY PROGRESS NOTE: DATE: 08/15/2019 CHART NUMBER: [id number] Ms. Cedeño is presently at a dose of 1600 cGy to her right lung and is tolerating treatments quite well at this point with no significant difficulties related to her radiation therapy. She is tolerating her treatments quite well. REVIEW OF SYSTEMS: The patient's review of systems is noncontributory. Denies nausea, vomiting, fevers, chills, night sweats, diplopia, headaches, anxiety or depression, anorexia, weight loss, visual disturbances, chest pain, urinary or bowel difficulties, bone pain, or neurological problems. PHYSICAL EXAMINATION: A physical examination is deferred as per COVID-19 precautions. ASSESSMENT: Ms. Cedeño is tolerating treatments quite well and radiation will continue as scheduled.
--- NOTE | 2019-08-22 08:33 | RADONC ---
RADIATION ONCOLOGY PROGRESS NOTE DATE: 08/22/2019 CHART NUMBER: [id number] Ms. Cedeño is presently at a dose of 2600 cGy to her right lung and is tolerating treatments quite well at this point with no significant complaints related to her radiation therapy. Overall she is feeling relatively quite well. The patient's review of systems is noncontributory. She denies nausea, vomiting, fevers, chills, night sweats, diplopia, headaches, anxiety or depression, anorexia, weight loss, visual disturbances, chest pain, urinary or bowel difficulties, bone pain, or neurological problems. PHYSICAL EXAMINATION: Physical examination reveals her skin to be in normal condition with no evidence of moist or dry desquamation. The remainder of her physical exam remains unchanged. Ms. Cedeño is tolerating treatments quite well and radiation will continue as scheduled.
--- NOTE | 2019-08-29 13:24 | RADONC ---
RADIATION ONCOLOGY PROGRESS NOTE DATE: 08/29/2019 CHART #: [id number] Ms. Cedeño is presently at a dose of 3600 cGy to her right lung and is tolerating treatments quite well at this point with no significant difficulties related to her radiation therapy other than some discomfort upon swallowing and some shortness of breath. REVIEW OF SYSTEMS: The patient's review of systems is positive for some discomfort with swallowing and shortness of breath, but is otherwise noncontributory. Denies nausea, vomiting, fevers, chills, night sweats, diplopia, headaches, anxiety or depression, anorexia, weight loss, visual disturbances, chest pain, urinary or bowel difficulties, bone pain, or neurological problems. PHYSICAL EXAMINATION: The patient's skin is in good condition with no evidence of moist or dry desquamation. The remainder of her physical exam remains unchanged. Ms. Cedeño is tolerating treatments quite well and radiation will continue as scheduled.
--- NOTE | 2019-09-05 20:29 | RADONC ---
RADIATION ONCOLOGY PROGRESS NOTE DATE: 09/05/2019 CHART NUMBER: [id number] Ms. Cedeño is presently at a dose of 4600 cGy to her right lung and is tolerating treatments quite well at this point with no difficulties related to her radiation therapy. She is having no skin discomfort, increased shortness of breath or problems swallowing. REVIEW OF SYSTEMS: The patient's review of systems is noncontributory. She denies nausea, vomiting, fevers, chills, night sweats, diplopia, headaches, anxiety or depression, anorexia, weight loss, visual disturbances, chest pain, urinary or bowel difficulties, bone pain, or neurological problems. PHYSICAL EXAMINATION: The patient's skin is in good condition with no evidence of moist or dry desquamation. The remainder of her physical exam remains unchanged. Ms. Cedeño is tolerating treatments quite well and radiation will continue as scheduled.
== END ==
LOC: M ONCR 08-10 08:04
PROVIDERS: ATTEND Radiology Radiation Oncology
DX: C34.11 Malignant neoplasm of upper lobe, right bronchus or lung (principal)

== ENCOUNTER 2019-09-14 08:00 | Outpatient (RCR) | payer OTHER ==
--- NOTE | 2019-09-14 16:16 | RADONC ---
RADIATION ONCOLOGY PROGRESS NOTE DATE: 09/12/2019 CHART NUMBER: [id number] PROGRESS NOTE: Ms. Cedeño is presently at a dose of 5800 cGy to her right lung and is tolerating treatments quite well at this point with no significant complaints related to her radiation therapy. Overall, she is doing quite well. She does have some shortness of breath. REVIEW OF SYSTEMS: The patient's review of systems is basically noncontributory. Denies nausea, vomiting, fevers, chills, night sweats, diplopia, headaches, anxiety or depression, anorexia, weight loss, visual disturbances, chest pain, urinary or bowel difficulties, bone pain, or neurological problems. PHYSICAL EXAMINATION: The patient's skin is in good condition with no evidence of moist or dry desquamation. The remainder of her physical exam remains unchanged. Ms. Cedeño is tolerating treatments quite well and radiation will continue as scheduled.
[2019-09-16] MEDS ORDERED: OMEP40CA97 PO (11:24)
--- NOTE | 2019-09-17 13:25 | RADONC ---
RADIATION ONCOLOGY TREATMENT SUMMARY DATE: 09/16/2019 CHART NUMBER: [id number] DIAGNOSIS: Right upper lobe lung cancer. STAGE: III A, T1, N2, M0. ECOG PERFORMANCE STATUS: 0 TREATMENT SUMMARY Ms. 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 We treated the patient to her primary site for a total dose of 6000 cGy delivered in 30 fractions of 200 cGy each with 39 elapsed days from 08/04/2019 through 09/14/2019. The patient was treated on the linear accelerator utilizing 3-D conformal technique with a 15 X photon beam. Ms. Cedeño tolerated her treatments quite well and was able complete therapy as prescribed without interruption. I have scheduled the patient to be seen by me again in 1 month for further followup. She will also continue to be followed by her other physicians as well. cc: DWAINE Leung MD
[2019-09-30] MEDS ORDERED: LEVO50TA5 PO (08:52)
[2019-10-27] MEDS ORDERED: LEVO25TA5 PO (14:56)
== END 2019-10-09 ==
LOC: M ONCR 08:00
PROVIDERS: ATTEND Radiology Radiation Oncology
DX: C34.11 Malignant neoplasm of upper lobe, right bronchus or lung (principal)

== ENCOUNTER → 2019-09-22 | Outpatient (REF) | payer OTHER ==
[~2019-09-22] MED LIST changes: +LEVO50TA5 PO; +OMEP40CA97 PO
[2019-09-22 13:25] LABS: FREE T4 1.55 NG/DL (0.76-1.46); THYROID STIMULATING HORMONE 0.853 uIU/ML (0.358-3.740)
== END ==
LOC: M PLALAB 08:29
PROVIDERS: ATTEND Nurse Practitioner Family
DX: E03.2 Hypothyroidism due to medicaments and other exogenous substances (principal)

== ENCOUNTER → 2019-10-21 | Outpatient (REF) | payer OTHER ==
[~2019-10-21] MED LIST changes: +LEVO25TA5 PO
[2019-10-21 11:25] LABS: FREE T4 1.05 NG/DL (0.76-1.46); THYROID STIMULATING HORMONE 3.41 uIU/ML (0.358-3.740)
== END ==
LOC: M SFHCPLAZ 09:41
PROVIDERS: ATTEND Nurse Practitioner Family
DX: E03.2 Hypothyroidism due to medicaments and other exogenous substances (principal)

== ENCOUNTER → 2019-10-25 | Outpatient (CLI) | payer OTHER ==
--- NOTE | 2019-10-27 11:20 | RADONC ---
RADIATION ONCOLOGY FOLLOWUP NOTE DATE OF SERVICE: 10/25/2019 This is a telemedicine visit. The patient was informed of the risks including security breech, technological failure, inability to perform a comprehensive physical exam which could delay or prevent an accurate diagnosis, and potential complications from treatment decisions rendered over a telemedicine platform. The patient understands and consented to the use of telehealth services. Phone only. CHART NUMBER: [id number]. DIAGNOSIS: Right upper lobe lung cancer. STAGE: IIIA, T1, N2, M0. ECOG PERFORMANCE STATUS: 0. FOLLOWUP NOTE: Ms. 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 The patient presents today reporting that she is doing quite well with complete resolution of her discomfort upon swallowing and other difficulties. She reports that she feels fine. The patient is scheduled see her medical oncologist, Dr. Espinosa, on this week and is scheduled see Dr. Lobato the first week in November. She is also scheduled for her CT scans October 30 on Thursday. REVIEW OF SYSTEMS: The patient's review of systems is noncontributory. She denies nausea, vomiting, fevers, chills, night sweats, diplopia, headaches, anxiety or depression, anorexia, weight loss, visual disturbances, chest pain, urinary or bowel difficulties, bone pain, or neurological problems. PHYSICAL EXAMINATION: Physical examination was deferred as per COVID-19 precautions. ASSESSMENT: Ms. Cedeño is doing clinically quite well, and I have scheduled her to see us in 3 months' time. She will also continue be followed by her other physicians in the meantime. CT scans are scheduled for next week to evaluate the results of the treatment. cc: MD Mi Rivera, DWAINE Lobato, DO [facility]
== END ==
LOC: M ONCR 14:57
PROVIDERS: ATTEND Radiology Radiation Oncology
DX: C34.11 Malignant neoplasm of upper lobe, right bronchus or lung (principal)

== ENCOUNTER → 2019-10-31 | Outpatient (CLI) | payer OTHER ==
[~2019-10-31] MED LIST changes: +ISOVUE-370 76% 100ML VIAL As Ordered ONE
--- NOTE | 2019-10-31 14:27 | REP ---
CT CHEST WITH IV CONTRAST: HISTORY: Restaging lung carcinoma. Adenocarcinoma right lung. Status post radiation. Comparison chest CT study June 15, 2019. CT CONTRAST DOSE: 75 mL of intravenous Isovue [address] FINDINGS: Digital preliminary supervisor speech radiograph shows fiducial markers in the right perihilar region and a Darsur-V-Ucix catheter in place. There is no evidence of pleural or pericardial effusion. No hilar or mediastinal mass or adenopathy is observed. No adrenal mass is seen. There is diffuse fatty infiltration of the liver. There are scattered subcentimeter nodular densities in the lung barton bilaterally unchanged from the 06/15/2019 study. The largest of these is in the left upper lobe is seen today on page 41 of 112 in series 201. This measures 5 mm in greatest diameter. It is unchanged. There is a small area of spiculation adjacent to the fiducial markers in the right upper lobe anteriorly. This measures 6 mm and is felt to be unchanged. No new pulmonary nodule or mass lesion is seen. There is some fibroatelectatic change in the posterior segment right upper lobe unchanged from the prior study. Lung barton are otherwise clear. The previously noted hiatal hernia is not seen today. IMPRESSION: Stable small subcentimeter nodular changes. Areas of fibrosis right upper lobe posteriorly. Electronically Signed by Robert Salas MD 10/31/2019 05:06 P
== END ==
LOC: M RAD 10:50
PROVIDERS: ATTEND Internal Medicine Hematology & Oncology
DX: C34.91 Malignant neoplasm of unspecified part of right bronchus or lung (principal)
CPT/HCPCS: 71260; Q9967

== ENCOUNTER → 2019-11-09 | Outpatient (CLI) | payer OTHER ==
[~2019-11-09] MED LIST changes: -ISOVUE-370 76% 100ML VIAL As Ordered ONE; +POTA20TA6 PO
[2019-11-09 14:17] LABS: BASO % 0.7 % (0.0-1.0); EOS # 0.7 10^3/uL (0.0-0.5); EOS % 15.6 % (0.0-3.0); HEMATOCRIT 37.4 % (36.0-47.0); HEMOGLOBIN 12.1 g/dl (12.0-15.5); LYMPH # 0.9 10^3/uL (1.5-5.0); LYMPH % 19.8 % (24.0-44.0); MEAN CORPUSCULAR HEMOGLOBIN 34.8 pg (27.0-33.0); MEAN CORPUSCULAR HGB CONC 32.4 g/dl (32.0-36.5); MEAN CORPUSCULAR VOLUME 107.5 fl (80.0-96.0); MONO # 0.4 10^3/uL (0.0-0.8); MONO % 9.5 % (0.0-5.0); NEUTROPHILS # 2.5 10^3/uL (1.5-8.5); PLATELET COUNT, AUTOMATED 268 10^3/uL (150-450); RED BLOOD COUNT 3.48 10^6/uL (4.00-5.40); WHITE BLOOD COUNT 4.5 10^3/uL (4.0-10.0)
[2019-11-09 15:01] LABS: ALT/SGPT 33 U/L (12-78); BILIRUBIN,TOTAL 0.5 MG/DL (0.2-1.0); BLOOD UREA NITROGEN 7 MG/DL (7-18); CARBON DIOXIDE LEVEL 29 MEQ/L (21-32); CHLORIDE LEVEL 101 MEQ/L (98-107); CREATININE FOR GFR 0.72 MG/DL (0.55-1.30); FREE T4 0.92 NG/DL (0.76-1.46); GLOMERULAR FILTRATION RATE > 60.0 (>51); GLUCOSE, FASTING 130 MG/DL (70-100); POTASSIUM SERUM 4.4 MEQ/L (3.5-5.1); SODIUM LEVEL 135 MEQ/L (136-145); TOTAL PROTEIN 6.9 GM/DL (6.4-8.2)
== END ==
LOC: M PLALAB 12:08
PROVIDERS: ATTEND Internal Medicine Hematology & Oncology
DX: C34.91 Malignant neoplasm of unspecified part of right bronchus or lung (principal)

== ENCOUNTER → 2019-11-16 | Outpatient (REF) | payer OTHER ==
[~2019-11-16] MED LIST changes: +PEPC1TAB5 PO; +PRED10TA2 PO; +SYNT75TA PO
== END ==
LOC: M LAB REF 08:02
PROVIDERS: ATTEND Dermatology
DX: D23.30 Other benign neoplasm of skin of unspecified part of face (principal)

== ENCOUNTER → 2020-01-06 | Outpatient (CLI) | payer OTHER ==
--- NOTE | 2020-01-24 15:54 | REP ---
CHEST X-RAY: HISTORY: Lung cancer. TECHNIQUE: PA and lateral COMPARISON: 06/20/19 FINDINGS: Mediastinum and cardiac silhouette are normal. Infusaport again identified with tip in the SVC. Two small clips are again noted in the right perihilar region. The lung barton demonstrate stable chronic changes. No discrete focal consolidation, effusion or pneumothorax. Skeletal structures are intact. IMPRESSION: Chronic stable changes. No obvious acute cardiopulmonary process. MTDD
== END ==
LOC: M RAD 11:26
PROVIDERS: ATTEND Nurse Practitioner Family
DX: C34.00 Malignant neoplasm of unspecified main bronchus (principal)

== ENCOUNTER → 2020-02-06 | Outpatient (CLI) | payer OTHER ==
[~2020-02-06] MED LIST changes: +ISOVUE-370 76% 100ML VIAL As Ordered ONE
--- NOTE | 2020-02-15 14:59 | REP ---
CT CHEST WITH INTRAVENOUS (IV) CONTRAST HISTORY: Lung cancer. COMPARISON: Chest CT study from 10/31/2019. PET CT 07/06/2019. CT CONTRAST DOSE: 75 mL of intravenous Isovue-370. CT FINDINGS: There is a new area of infiltrative interstitial change and discoid atelectasis in the superior segment of the right lower lobe. This appears inflammatory and/or fibrotic. Question post radiation change. There are fiducial markers with some adjacent fibrosis in the right upper lobe anteriorly as before. There are scattered tiny granulomatous nodules, which are stable. Emphysematous changes are noted in the upper lobes bilaterally. No pleural or pericardial effusion is seen. No hilar or mediastinal adenopathy or mass lesion is seen. There is mild fatty infiltration of the liver. No adrenal lesion is observed. Visualized upper abdominal structures are otherwise unremarkable. Bone window settings show no bony destructive lesion. There is a fairly large benign hemangioma again noted in the mid thoracic spine. IMPRESSION: New infiltrative/atelectatic change superior segment right lower lobe question post radiation changes. Fiducial markers right upper lobe. Fibroatelectasis right upper lobe anteriorly. Scattered stable tiny granulomatous nodules. MTDD
== END ==
LOC: M RAD 08:03
PROVIDERS: ATTEND Internal Medicine Medical Oncology
DX: R06.02 Shortness of breath (principal); C34.90 Malignant neoplasm of unspecified part of unspecified bronchus or lung; Z92.3 Personal history of irradiation
CPT/HCPCS: 71260; Q9967

== ENCOUNTER → 2020-02-15 | Outpatient (CLI) | payer OTHER ==
[~2020-02-15] MED LIST changes: -ISOVUE-370 76% 100ML VIAL As Ordered ONE; -SYNT75TA PO
--- NOTE | 2020-02-15 15:25 | RADONC ---
Radiation Oncology Hx/FUP Radiation Oncology Hx/FUP Date of Service: Feb 15, 2020 Pt Identifier Heavenly Cedeño is a 54 year old female seen for a followup visit today at the department of radiation oncology for a history of NSCLC [id number] stage IIIA of the RUL s/p chemoradiation to 60 Gy in 30 fractions completed 09/14/19. Diagnosis/Treatment History Oncologic History [id number] poorly differentiated adenocarcinoma of the lung. - 03/11/18, RUL lung nodule BX - poorly differentiated adenocarcinoma of lung - PD-L1 50% +, negative for ALK gene rearrangement , ROS1 - negative, EGFR mutationnegative. - 03/24/18- PET scan 1 cm spiculated nodule Rt lung, subcarinal LN 3.5 x 1.2 cm, no cervical, supraclavicular, axillary, left hilar, retroperitoneal, intraperitoneal, deep pelvic, or inguinal LAD, no other sites of mets. - 04/22/2018, MRI brain - no metastatic disease reported. - 05/20/18- commenced single-agent pembrolizumab until 05/26/19 - 06/15/2019 - CT CAP -- previously identified nodules in the upper lobes minimally decreased in size. No new nodular mass appreciated. Largest JOSE 9 mm, currently measuring 6 mm compared to 01/20/2019. Right hilar LN 14 mm, unchanged compared to 01/20/2019. Of note, 03/11/2018 JOSE bronchoscopic biopsy, FNA cell block -- benign lung parenchyma and blood clots, no malignancy identified. - 06/23/2019 MRI brain -- no brain mets. - 07/06/2019 PET scan -- negative, previously noted hypermetabolic subcarinal LAD -- resolved. RUL nodule dramatically improved morphologically, no hypermetabolic uptake seen. The patient has had waxing and waning JOSE lung nodules with 2018 biopsy being benign and no evidence of left lung disease on 04/29/2018 PET scan. -Completed concurrent chemotherapy RT September/2019. Started Durvalumab immunotherapy maintenance 11/2019. 02/06/20 CT chest with contrast: Note both anterior and posterior RUL post RT changes consistent with evolving pneumonitis given the patient was treated with AP/PA barton. No evidence of recurrent primary lesion or adenopathy. Interval History She has been under treatment for RT pneumonitis with Dr. Azar for the past 2+ weeks. She is on a prednisone taper, currently weaned to 10 mg daily. Notes the symptoms started subacutely and worsening to constant cough and WILKERSON. She states that these are getting better slowly with the steroid. Durvalumab is currently on hold. Aside from the pulmonary symptoms she offers no complaints, appetite is good, weight has increased. Energy level however is only fair. Sleep was poor at baseline but worse on prednisone. She has no GI complaints. Current Therapy Durvalumab, held while on prednisone as above Stage [id number] NSCLC stage IIIa of RUL Social History: 20 pk year former smoker Social alcohol use Allergies / Meds Allergies: Coded Allergies: No Known Allergies (Verified , 05/14/18) Home Meds Active Scripts Famotidine (Pepcid) 20 Mg Tablet, 1 TAB PO BID for 30 Days, #60 TAB 1 Refill Prov:SREE AZAR MD 02/02/20 Prednisone (Prednisone) 10 Mg Tablet, 4 TAB PO DAILY, #55 TAB for 5 days then taper as instructed every 5 days Prov:SREE AZAR MD 02/02/20 Hydroxyzine HCl (Hydroxyzine HCl) 25 Mg Tablet, 25 MG PO TID for pruritus MDD 3 tabs, #90 TAB 1 Refill Prov:SREE AZAR MD 01/05/20 Omeprazole (Omeprazole) 40 Mg Capsule.dr, 40 MG PO DAILY for 30 Days, #30 CAP 2 Refills Prov:NIDA FOUNTAIN MD 09/16/19 Ondansetron HCl (Ondansetron HCl) 8 Mg Tablet, 8 MG PO ASDIRECTED PRN for NAUSEA OR VOMITING, #40 TAB 1 Refill TAKE 1 TAB TWICE A DAY ON DAYS 2-5 OF CHEMOTHERAPY, then tid prn Prov:GILBERTO REY MD 08/04/19 Loratadine (Claritin) 10 Mg Capsule, 1 CAP PO DAILY for allergy symptoms for 30 Days, #30 CAP 3 Refills Prov:Isabel Martinez MD 02/10/19 Lidocaine/Prilocaine (Lidocaine-Prilocaine Cream) 1 Cre Cre, 1 CRE TOP ASDIRECTED for prior to treatment, #30 GRAMS apply to portacath area 30 minutes before office visit Prov:Isabel Martinez MD 10/27/18 Reported Medications Potassium Chloride (Potassium Chloride) 20 Meq Tab.er.prt, 1 TAB PO DAILY for 30 Days, #30 TAB 11/24/19 Levothyroxine Sodium (LEVOTHYROXINE SODIUM) 25 Mcg Tablet, 75 MCG PO DAILY for 30 Days, #30 TAB 10/27/19 Multivit,Calc,Mins/Iron/Folic (One-A-Day Women's Tablet) 1 Each Tablet, 1 TAB PO, TAB 06/09/19 Hydroxyzine HCl (Hydroxyzine HCl) 25 Mg Tablet, 25 MG PO ASDIRECTED 05/26/19 Tiotropium Vesta (Spiriva) 18 Mcg Cap, 1 INH INH DAILY 07/01/17 Salmeterol/Fluticasone (Advair 250-50 Diskus) 14 Puff/Inhaler Aerp, 1 PUFF BID 07/01/17 Review of Systems Review of Systems Constitutional: Denies: ROS Unabtainable, Chills, Fever, Malaise, Night Sweats, Weakness, Fatigue, Lethargy, Normal appetite, Other symptoms Eyes: Denies: Pain, Vision change, Conjunctivae inflammation, Eyelid inflammation, Redness, Other HEENT: Denies: Head Aches, Ear Pain, Dysphagia, Sinus Congestion, Post Nasal Drip, Sore Throat, Epistaxis, Other Symptoms Skin: Denies: Rash, Lesions, Jaundice, Bruising, Other Pulmonary: Reports: Dyspnea, Cough; Denies: Pleuritic Chest Pain Cardiovascular: Denies: Chest Pain, Palpitations, Orthopnea, Paroxysmal Noc. Dyspnea, Edema, Lt Headedness, Other Symptoms Gastrointestinal: Denies: Nausea, Vomiting, Abdominal Pain, Diarrhea, Constipation, Melena, Hematochezia, Other Symptoms Genitourinary: Denies: Dysuria, Frequency, Incontinence, Hematuria, Retention, Other Symptoms Hematologic: Denies: Bruising, Bleeding Excessively, Petecchia, Purpura, Enlarged Lymph Nodes, Other Hematologic Endocrine: Denies: Polydipsia, Polyphagia, Polyuria, Heat Intolerance, Cold Intolerance, Other Endocrine Sx Musculoskeletal: Denies: Neck pain, Shoulder pain, Arm pain, Back pain, Hand pain, Leg pain, Foot pain, Joint pain, Muscle pain, Spasms, Gout, Joint sweling, Muscle stiffness, Midthoracic pain, Other Neurological: Denies: Weakness, Numbness, Incoordination, Change in Speech, Co nfusion, Seizures, Other Symptoms Physical Examination Vital Signs Wt 174 lb T 97.2 P 91 RR 18 BP 121/84 O2 95% Pain 0 Fatigue 1 General Exam: Positive: Alert, Cooperative, No Acute Distress Eye Exam: Positive: PERRLA, EOMI ENT EXAM: Positive: Atraumatic, Pharynx Normal Neck Exam: Positive: Supple; Negative: Lymphadenopathy Chest Exam: Positive: Clear to auscultation, Normal air movement; Negative: Rales, Rhonchi, Wheezing, Diminished Heart Exam: Positive: Rate Normal, Regular Rhythm Abdomen Exam: Positive: Normal bowel sounds, Soft; Negative: Tenderness Extremity Exam: Negative: Edema Skin Exam: Positive: Nl turgor and temperature, Rash Neuro Exam: Positive: Normal Gait, Normal Speech, Strength at 5/5 X4 ext, Cranial Nerves 3-12 NL Psych Exam: Positive: Mental status NL, Mood NL Diagnostic and Laboratory Diagnostic Review Radiologic images, relevant labs and pathology reports were personally reviewed and discussed with Ms. Cedeño. Assessment and Plan Impression Assessment Ms. Cedeño is a 54 year old female seen for a followup visit today at the department of radiation oncology for a history of NSCLC [id number] stage IIIA of the RUL s/p chemoradiation to 60 Gy in 30 fractions completed 09/14/19. I reviewed her recent CT chest in detail, on my interpretation she has evolving post-radiation changes in the AP/PA treatment portal, which correlates clinically with her symptoms of cough and dyspnea, there is no doubt this is radiation pneumonitis. She is improving on a prednisone taper, Dr. Azar is adeptly managing this, she is doing well on 10 mg daily. If she were to notice recrudescent symptoms once off prednisone I suggest she return to 10 mg daily for at least 2-3 weeks prior to another attempt to taper off the medication. RT pneumonitis can sometimes be tenacious and slow to resolve. However she appears to have had an excellent response to chemoradiation with respect to tumor regression. I note no evidence of progression or recurrence on the CT. I will see her again in 6 months time and defer imaging to Dr. Azar who has been giving her durvalumab. Performance Status EBOG 1 Plan Follow up in 6 months, imaging per medical oncology Ms. Cedeño was encouraged to call with questions or concerns in the interim period. ALL ANNE MD Feb 15, 2020 15:25
== END ==
LOC: M ONCR 13:57
PROVIDERS: ATTEND General Practice
DX: C34.11 Malignant neoplasm of upper lobe, right bronchus or lung (principal)

== ENCOUNTER → 2020-03-06 | Outpatient (REF) | payer OTHER ==
[~2020-03-06] MED LIST changes: +SYNT75TA PO
== END ==
LOC: M SFHCPLAZ 08:29
PROVIDERS: ATTEND Nurse Practitioner Family
DX: R07.9 Chest pain, unspecified (principal)

== ENCOUNTER 2020-04-09 10:45 | Emergency (ER) | payer OTHER ==
[~2020-04-09] VITALS: Ht 12.7 cm; Wt 80.5 kg
[2020-04-09] MEDS ORDERED: INCR1INH INH (11:06)
[2020-04-09] MEDS ORDERED: NS 1,000 ML IV ONE (12:00)
--- NOTE | 2020-04-09 12:18 | REP ---
INDICATION: thoracic back pain, hx lung CA. COMPARISON: Comparison chest x-ray January 06, 2020.. TECHNIQUE: Portable sitting AP view. FINDINGS: A left-sided Gmspee-F-Prag catheter remains in place with its tip in the expected location of the superior vena cava. There are 2 fiducial markers in the right perihilar region unchanged. There is minimal streaky fibrosis in this region of the right lung and some overall volume loss in the right hemithorax again seen. Left lung remains clear. No new infiltrate is seen on either side. IMPRESSION: Fiducial markers on the right with some perihilar fibro atelectatic changes on the right unchanged from prior study. No acute infiltrate. The Srhfpw-D-Ovdq catheter. <Electronically signed by Abdias Salas > 04/09/20 [id number]
[2020-04-09 12:32] LABS: BASO # 0.1 10^3/uL (0.0-0.2); EOS # 0.9 10^3/uL (0.0-0.5); EOS % 11.8 % (0.0-3.0); HEMATOCRIT 41.1 % (36.0-47.0); HEMOGLOBIN 13.7 g/dl (12.0-15.5); LYMPH # 0.9 10^3/uL (1.5-5.0); LYMPH % 12.4 % (24.0-44.0); MEAN CORPUSCULAR HEMOGLOBIN 32.4 pg (27.0-33.0); MEAN CORPUSCULAR HGB CONC 33.3 g/dl (32.0-36.5); MEAN CORPUSCULAR VOLUME 97.2 fl (80.0-96.0); MONO # 0.6 10^3/uL (0.0-0.8); MONO % 8.6 % (0.0-5.0); NEUTROPHILS # 4.8 10^3/uL (1.5-8.5); NEUTROPHILS % 65.9 % (36.0-66.0); PLATELET COUNT, AUTOMATED 278 10^3/uL (150-450); RED BLOOD COUNT 4.23 10^6/uL (4.00-5.40); WHITE BLOOD COUNT 7.2 10^3/uL (4.0-10.0)
[2020-04-09 13:00] LABS: BLOOD UREA NITROGEN 10 MG/DL (7-18); CALCIUM LEVEL 9.3 MG/DL (8.5-10.1); CARBON DIOXIDE LEVEL 26 MEQ/L (21-32); CHLORIDE LEVEL 102 MEQ/L (98-107); CK-MB VALUE MASS 3.1 NG/ML (<3.6); CPK CREATINE PHOSPHOKINASE 174 U/L (26-192); CREATININE FOR GFR 0.75 MG/DL (0.55-1.30); GLOMERULAR FILTRATION RATE > 60.0 (>51); GLUCOSE, FASTING 98 MG/DL (70-100); MB/CK RELATIVE INDEX 1.78 (< OR =4); POTASSIUM SERUM 4.5 MEQ/L (3.5-5.1); SODIUM LEVEL 136 MEQ/L (136-145); TROPONIN I < 0.02 NG/ML (< 0.10)
[2020-04-09] MEDS ORDERED: KETOROLAC 30 MG/ML 1ML VIAL IV ONE (13:15)
[2020-04-09 14:02] VITALS: BP 146/84
--- NOTE | 2020-04-09 19:13 | ECGEPIP ---
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 Order Number: [id number] Reading MD: Ronald Rashid Measurements Intervals [place] Rate: 83 P: 57 WA: 161 QRS: 58 QRSD: 65 T: 58 QT: 376 QTc: 443 Interpretive Statements SINUS RHYTHM POOR R WAVE PROGRESSION SIMILAR TO 03/11/18 Electronically Signed on 04-09-2020 19:13:31 EST by Ronald Rashid
== END 2020-04-09 14:39 | disposition home or self-care (01) ==
LOC: M ED 10:45
DX: M62.830 Muscle spasm of back (principal); M54.6 Pain in thoracic spine; C34.91 Malignant neoplasm of unspecified part of right bronchus or lung; Z79.899 Other long term (current) drug therapy
CPT/HCPCS: 71045; 80048; 82550; 82553; 85025; 93005; 96361; 96374; 99284; J1885

== ENCOUNTER → 2020-04-12 | Outpatient (CLI) | payer OTHER ==
[~2020-04-12] MED LIST changes: +INCR1INH INH
--- NOTE | 2020-04-13 05:41 | REP ---
INDICATION: RIGHT LUNG CA COMPARISON: None. TECHNIQUE: AP, lateral, and swimmers views. FINDINGS: Alignment and kyphosis is maintained. Vertebral bodies intact. No acute fracture / compression injury or subluxation. No degenerative changes. Paravertebral soft tissues are normal. IMPRESSION: Normal age-appropriate thoracic spine series. <Electronically signed by Suraj Castañeda > 04/13/20 [id number]
--- NOTE | 2020-04-13 05:43 | REP ---
INDICATION: RIGHT LUNG CA COMPARISON: None. TECHNIQUE: AP, lateral, bilateral oblique, and coned-down views of the lumbar spine. FINDINGS: Alignment and lordosis maintained. Vertebral bodies are intact. Disc spaces are relatively normal/age-appropriate. No acute fracture/compression injury or subluxation. No obvious spondylolysis or spondylolisthesis.. Age-related osteopenia and mild multilevel degenerative changes noted. IMPRESSION: Osteopenia and essentially age-related changes. No acute fracture/compression injury or subluxation. <Electronically signed by Suraj Castañeda > 04/13/20 [id number]
== END ==
LOC: M RAD 13:34
PROVIDERS: ATTEND Internal Medicine Medical Oncology
DX: C34.91 Malignant neoplasm of unspecified part of right bronchus or lung (principal)

== ENCOUNTER → 2020-05-07 | Outpatient (REF) | payer OTHER ==
[2020-05-07 13:35] LABS: FREE T4 1.07 NG/DL (0.76-1.46); THYROID STIMULATING HORMONE 3.42 uIU/ML (0.358-3.740); TOTAL 25(OH) VITAMIN D 26.7 NG/ML (30.0-100.0)
== END ==
LOC: M PLALAB 10:45
PROVIDERS: ATTEND Nurse Practitioner Family
DX: E03.2 Hypothyroidism due to medicaments and other exogenous substances (principal); E55.9 Vitamin D deficiency, unspecified

== ENCOUNTER → 2020-05-15 | Outpatient (CLI) | payer OTHER ==
[~2020-05-15] MED LIST changes: +GASTROGRAFIN SOLUTION 30ML (Q9963) As Ordered ONE; +ISOVUE-370 76% 100ML VIAL As Ordered ONE
--- NOTE | 2020-05-15 13:06 | REP ---
INDICATION: LUNG CA COMPARISON: 02/06/2020 TECHNIQUE: Axial contrast enhanced images from the thoracic inlet to the upper abdomen with coronal and sagittal reformations using 100 ml Isovue 370 intravenous contrast material. This CT examination was performed using the following dose reduction techniques: Automated exposure control, adjustment of mA and/or kv according to the patient's size, and use of iterative reconstruction technique. FINDINGS: There is a new 18 mm mass with spiculated margins along the posterior aspect of the right upper lobe (image 25). Areas of linear atelectasis/scarring and consolidation along the basilar aspect of the of the right upper lobe and within the apical segment right lower lobe are again identified with more confluent solid appearance to the changes involving the apical right lower lobe as compared to prior examination. Left hemithorax is clear. Underlying chronic emphysematous changes are noted along with surgical clips in the right upper lobe. No effusion. No pneumothorax. Tracheobronchial tree is patent. No significant adenopathy. Further evaluation of the mediastinum demonstrates stable atherosclerotic changes to the thoracic aorta and coronary arteries without aortic aneurysm or dissection. No cardiomegaly or pericardial effusion. Surrounding musculoskeletal structures without acute osseous abnormality. IMPRESSION: 1. New presumed malignant mass with spiculated margins in the posterior right upper lobe. 2. Relatively chronic changes along the basilar right upper lobe remains stable while the chronic changes in the apical right lower lobe currently appear more consolidative and may represent active process. 3. No adenopathy. No effusion. <Electronically signed by Suraj Castañeda > 05/15/20 [id number]
--- NOTE | 2020-05-15 13:13 | REP ---
INDICATION: LUNG CA. COMPARISON: None TECHNIQUE: Axial contrast-enhanced images from the lung bases to the pubic symphysis using oral and 100 cc Isovue 370 intravenous contrast material. Delayed images of the abdomen along with coronal and sagittal reformations obtained.. This CT examination was performed using the following dose reduction techniques: Automated exposure control, adjustment of mA and/or kv according to the patient's size, and the use of iterative reconstruction technique. FINDINGS: Liver demonstrates hepatosteatosis without focal lesion. Spleen, pancreas, gallbladder, bilateral adrenal glands and kidneys are normal. The enteric system includes small hiatal hernia and there is no evidence for obstruction or acute inflammatory process. Normal terminal ileum and appendix are identified in the right lower quadrant. Pelvis demonstrates normal bladder and evidence for prior hysterectomy. No pelvic fluid. No ascites. No free air. No intraperitoneal or retroperitoneal adenopathy. Atherosclerotic changes to the aorta noted without aneurysm or dissection. 9 mm fat containing periumbilical hernia identified. Musculoskeletal structures demonstrate age-related changes without focal abnormality. IMPRESSION: Hepatosteatosis. No further acute abdominopelvic pathology appreciated. No evidence for metastatic disease. <Electronically signed by Suraj Castañeda > 05/15/20 [id number]
== END ==
LOC: M RAD 11:00
PROVIDERS: ATTEND Internal Medicine Medical Oncology
DX: K76.0 Fatty (change of) liver, not elsewhere classified (principal); C34.91 Malignant neoplasm of unspecified part of right bronchus or lung
CPT/HCPCS: 71260; 74177; Q9963; Q9967

== ENCOUNTER → 2020-05-29 | Outpatient (CLI) | payer OTHER ==
[~2020-05-29] MED LIST changes: +ADV500INH INH; +ASCO500T PO; +AUGM500T34 PO; +AZEL0.055 NARES; +B-COTAB25 PO; +BIOT1CAP2 PO; +CYAN100050 PO; +D31000TA2 PO; -GASTROGRAFIN SOLUTION 30ML (Q9963) As Ordered ONE; +GNP250TA9 PO; +IBUP80TA PO; -ISOVUE-370 76% 100ML VIAL As Ordered ONE; +LORA-674 PO; +MAGN250T9 PO; +PROAAER10 INH; +VITA-243 PO; +VITA1CHW7 PO; +[UNRECOGNIZED DRUG - CODE] IV; +[UNRECOGNIZED DRUG - CODE] PO
--- NOTE | 2020-05-29 18:02 | REP ---
INDICATION: RESTAGING LUNG CANCER C34.11. Poorly differentiated adenocarcinoma of the right upper lobe diagnosed March 11, 2018. Treated with chemotherapy and then chemo radiation therapy. COMPARISON: Comparison chest CT study from 15 May 2020 showed a new spiculated 2.7 cm nodule in the posterior segment of the right upper lobe.. Comparison PET-CT studies are dated July 06, 2019 and March 24, 2018. TECHNIQUE: Sixty-two minutes following the intravenous injection of a 8.51 mCi dose of F-18 FDG, three-dimensional PET scintigraphy is acquired from the skull base to the proximal thighs. Triplanar noncontrast CT scanning is acquired through the same anatomic range for attenuation correction, and image registration with scan parameters optimized to minimize radiation exposure to the patient. PET scintigraphy and CT datasets were fused and displayed on a workstation with multiplanar and projection display capability. FINDINGS: Head and neck soft tissues are unremarkable. There is a left-sided Gelkdc-J-Nxhh catheter. In the thorax, they spiculated nodule seen on recent chest CT in the posterior aspect of the right upper lobe shows hypermetabolic uptake. Maximum standard uptake value in this nodule is 7.52. This is new compared with most recent prior study of July 06, 2019. There is mild FDG accumulation in post radiation fibrosis changes in the right lower lobe and right middle lobe posteriorly and anteriorly. Maximum standard uptake value in there is parenchymal opacity in the lower lobe is 2.85. The right middle lobe parenchymal opacity maximum SUV value is 1.37. These areas are not considered suspicious. No recurrent mass or nodule is seen. No other abnormal pulmonary parenchymal or intrathoracic hypermetabolic uptake is observed. In the abdomen and pelvis, normal hepatic, splenic, gastrointestinal, and genitourinary FDG accumulation is seen. No abnormal adrenal uptake is seen. No abnormal uptake is seen in the abdomen or pelvis. Scan is otherwise unremarkable. IMPRESSION: The new spiculated nodule in the right upper lobe is hypermetabolic and considered suspicious. No other abnormal hypermetabolic uptake is seen. Post radiation changes are noted on the right in the perihilar region. <Electronically signed by Abdias Salas > 05/29/20 [id number]
== END ==
LOC: M PLARAD 12:24
PROVIDERS: ATTEND Internal Medicine Medical Oncology
DX: C34.11 Malignant neoplasm of upper lobe, right bronchus or lung (principal)
CPT/HCPCS: 78815; A9552

== ENCOUNTER → 2020-06-13 | Outpatient (CLI) | payer OTHER ==
[~2020-06-13] MED LIST changes: -AUGM500T34 PO; +LIDOCAINE 1% MDV 20ML VIAL As Ordered ONE; +SODIUM BICARBONATE 8.4% INJ 50MEQ 50 ML VIAL As Ordered ONE
--- NOTE | 2020-06-13 10:03 | REP ---
INDICATION: POST RIGHT LUNG BIOPSY, 1 VIEW, PA INSPIRATION. COMPARISON: Comparison radiograph 09 April 2020.. TECHNIQUE: Single PA chest radiograph. FINDINGS: A left-sided Ncihtr-A-Okzm catheter is seen in place. Fiducial markings are noted in the right perihilar region. There is no evidence of pneumothorax or hydrothorax. Lung barton are unchanged. IMPRESSION: No complication seen. No evidence of pneumothorax post lung biopsy. <Electronically signed by Abdias Salas > 06/13/20 [id number]
[2020-06-13 11:10] VITALS: BP 126/91
--- NOTE | 2020-06-14 08:09 | REP ---
INDICATION: RT LUNG LESION. COMPARISON: None. TECHNIQUE: The procedure is performed by Yenny Byrd [facility], under the direct supervision of Dr. Salas. The risks and benefits of the procedure were explained to the patient and informed consent was obtained both orally and written. Directly prior to the start of the procedure, a formal timeout was done in the exam room. The right lobe lung nodule was localized using CT guidance. Skin was prepped and draped in the usual sterile fashion. Five ml of buffered lidocaine was used as a local anesthetic. FINDINGS: Using CT guidance a 19/20 gauge coaxial needle biopsy system was inserted and advanced into the nodule. Six core biopsy samples were obtained and sent to the lab. CT images obtained directly after the biopsy show no evidence of pneumothorax. After the appropriate amount of monitored convalescence the patient was discharged from the department. IMPRESSION: CT-guided right lung nodule biopsy. <Electronically signed by Yenny Byrd > 06/13/20 1626 <Electronically signed by Abdias Salas > 06/14/20 [id number]
== END ==
LOC: M IRPRO 08:03
PROVIDERS: ATTEND Specialist
DX: C34.91 Malignant neoplasm of unspecified part of right bronchus or lung (principal)

== ENCOUNTER → 2020-07-03 | Outpatient (CLI) | payer OTHER ==
[~2020-07-03] MED LIST changes: +AUGM500T34 PO; -LIDOCAINE 1% MDV 20ML VIAL As Ordered ONE; -SODIUM BICARBONATE 8.4% INJ 50MEQ 50 ML VIAL As Ordered ONE
--- NOTE | 2020-07-03 14:32 | RADONC ---
Radiation Oncology Hx/FUP Radiation Oncology Hx/FUP Date of Service: Jul 03, 2020 Pt Identifier Heavenly Cedeño is a 55 year old female former smoker seen for a followup visit today at the department of radiation oncology for a history of NSCLC [id number] stage IIIA of the RUL s/p chemoradiation to 60 Gy in 30 fractions completed 09/14/19. She has subsequently been maintained on durvalumab. She has developed a new RUL lesion which is PET-CT avid on the superior margin of the previously treated field. She is seen today for consideration of SBRT to address this new lesion. Diagnosis/Treatment History Oncologic History [id number] poorly differentiated adenocarcinoma of the lung. - 03/11/18, RUL lung nodule BX - poorly differentiated adenocarcinoma of lung - PD-L1 50% +, negative for ALK gene rearrangement , ROS1 - negative, EGFR mutationnegative. - 03/24/18- PET scan 1 cm spiculated nodule Rt lung, subcarinal LN 3.5 x 1.2 cm, no cervical, supraclavicular, axillary, left hilar, retroperitoneal, intraperitoneal, deep pelvic, or inguinal LAD, no other sites of mets. - 04/22/2018, MRI brain - no metastatic disease reported. - 05/20/18- commenced single-agent pembrolizumab until 05/26/19 - 06/15/2019 - CT CAP -- previously identified nodules in the upper lobes minimally decreased in size. No new nodular mass appreciated. Largest JOSE 9 mm, currently measuring 6 mm compared to 01/20/2019. Right hilar LN 14 mm, unchange d compared to 01/20/2019. Of note, 03/11/2018 JOSE bronchoscopic biopsy, FNA cell block -- benign lung parenchyma and blood clots, no malignancy identified. - 06/23/2019 MRI brain -- no brain mets. - 07/06/2019 PET scan -- negative, previously noted hypermetabolic subcarinal LAD -- resolved. RUL nodule dramatically improved morphologically, no hypermetabolic uptake seen. The patient has had waxing and waning JOSE lung nodules with 2018 biopsy being benign and no evidence of left lung disease on 04/29/2018 PET scan. -Completed concurrent chemotherapy RT September/2019. Started Durvalumab immunotherapy maintenance 11/2019. 02/06/20 CT chest with contrast: Note both anterior and posterior RUL post RT changes consistent with evolving pneumonitis given the patient was treated with AP/PA barton. No evidence of recurrent primary lesion or adenopathy. 05/15/20 CT chest new 1.8 cm mass in the posterior RUL 05/29/20 PET-CT hypermetabolism in new RUL lesion 06/13/20 CT biopsy non-diagnostic PFTs: FVC 2.26 FEV1 1.1 FEV1/FEV 61% predicted DLCO 56% predicted Interval History Heavenly feels well overall. No pain or weight loss. No cough or pleuritic CP. Stable mild WILKERSON. Tolerating durvalumab, mild fatigue only complaint, says it has been present since the last days of her chemoradiation. Says she is scheduling EBUS biopsy with Dr. Lobato in the coming weeks. Current Therapy Durvalumab q2w from 11/2019- Stage [id number] stage IIIA NSCLC RUL now [id number] stage IA2 NSCLC RUL Social History: 20 pk year former smoker Social alcohol use Allergies / Meds Allergies: Coded Allergies: No Known Allergies (Verified , 05/14/18) Home Meds Active Scripts Amoxicillin/Potassium Clav (Augmentin 500-125 Tablet) 1 Each Tablet, 500 MG PO TID, #21 TAB Prov:SREE AZAR MD 06/21/20 Reported Medications Biotin (Biotin) 1 Mg Capsule, 1 MG PO DAILY 06/13/20 Durvalumab (Imfinzi) Unknown Strength Vial, 1 DOSE IV Q2WK 06/13/20 Azelastine HCl (Azelastine HCl) 0.15% [place].pump, 2 SPRAY NARES BID PRN for NASAL CONGESTION 06/13/20 Albuterol Sulfate (Proair Hfa) 8.5 Gm Hfa.aer.ad, 2 PUFF INH QID PRN for SOB/WHEEZING 06/13/20 Ibuprofen (Ibuprofen) 800 Mg Tablet, 800 MG PO TID PRN for PAIN 06/13/20 Umeclidinium [place] (Incruse Ellipta) 62.5 Mcg Blst.w.dev, 1 PUFF INH DAILY 06/13/20 Salmeterol/Fluticasone (Advair 500-50 Diskus) 1 Each Blst.w.dev, 1 PUFF INH BID, INHALER 06/13/20 Mv,Ca,Min/Iron/FA/[place]/Caff (One-A-Day Women's Tablet) 1 Each Tablet, 1 TAB PO DAILY, TAB 06/13/20 Magnesium Oxide (Magnesium Oxide) 250 Mg Tablet, 250 MG PO DAILY, TAB 06/13/20 Loratadine (Loratadine) 10 Mg Tablet, 10 MG PO DAILY, TAB 06/13/20 Levothyroxine Sodium (Synthroid) 75 Mcg Tablet, 75 MCG PO QAM, TAB 06/13/20 Cholecalciferol (Vitamin D3) (Vitamin D3) 1,000 Unit Tablet, 4000 UNITS PO DAILY, TAB 06/13/20 Cyanocobalamin (Vitamin B-12) (Vitamin B-12) 1,000 Mcg Tablet, 1000 MCG PO DAILY, TAB 06/13/20 Ascorbic Acid (Ascorbic Acid) 500 Mg Tablet, 1000 MG PO DAILY, TAB 06/13/20 Review of Systems Review of Systems Constitutional: Denies: Chills, Fever, Weight Loss Eyes: Denies: Pain HEENT: Denies: Head Aches Pulmonary: Denies: Dyspnea, Cough Cardiovascular: Denies: Chest Pain, Palpitations Gastrointestinal: Denies: Nausea, Vomiting, Abdominal Pain Musculoskeletal: Denies: Neck pain, Back pain Neurological: Denies: Weakness, Numbness Psych: Reports: Mood Normal Physical Examination Vital Signs Ht 68" Wt 183 lbs BMI 27.8 T 97.1 P 95 RR 18 BP 141/92 O2 95% Pain 0 Fatigue 2 General Exam: Positive: Alert, Cooperative; Negative: No Acute Distress Eye Exam: Positive: PERRLA, EOMI ENT EXAM: Positive: Atraumatic Neck Exam: Positive: Supple; Negative: Lymphadenopathy Chest Exam: Positive: Clear to auscultation, Normal air movement Heart Exam: Positive: Rate Normal, Regular Rhythm Abdomen Exam: Positive: Soft; Negative: Tenderness Extremity Exam: Negative: Edema Skin Exam: Positive: Nl turgor and temperature Neuro Exam: Positive: Normal Gait, Normal Speech, Cranial Nerves 3-12 NL Psych Exam: Positive: Mental status NL Diagnostic and Laboratory Diagnostic Review Radiologic images, relevant labs and pathology reports were personally reviewed and discussed with Ms. Cedeño. Assessment and Plan Impression Assessment Ms. Cedeño is a 55 year old female former smoker seen for a followup visit today at the department of radiation oncology for a history of NSCLC [id number] stage I IIA of the RUL s/p chemoradiation to 60 Gy in 30 fractions completed 09/14/19. She has subsequently been maintained on durvalumab. She has developed a new RUL lesion which is PET-CT avid on the superior margin of the previously treated field. She is seen today for consideration of SBRT to address this new lesion. She has a pending EBUS biopsy with Dr. Lobato. This will be informative. Pending the biopsy, I recommend SBRT to the lesion, 60 Gy in 5 fractions with DCA planning and a 4DCT/ITV approach. This is a highly effective treatment for a solitary metachronous lesion with excellent and durable local control expected. The lesion is superior to the previously irradiated barton, but there is going to be some overlap, and as the prior treatment is recent, this constitutes reirradiation which will require extra time and effort to provide a safe and effective treatment plan. We reviewed the side effects of treatment, fatigue, pneumonitis and fibrosis. Simulation can occur ~1 week post biopsy. She agreed to proceed. Performance Status ECOG 0 Plan EBUS biopsy with Dr. Lobato SBRT to the RUL lesion 60 Gy in 5 fractions as discussed above Simulation pending biopsy date Ms. Cedeño was encouraged to call with questions or concerns in the interim period. Billing Statement Total time of [25] minutes was spent preparing for the visit [3], obtaining HPI [4], examining the patient [2], reviewing diagnostic tests [4], discussing management options [5], coordinating care [1], and writing this note [6]. ALL ANNE MD Jul 03, 2020 14:32
== END ==
LOC: M ONCR 12:54
PROVIDERS: ATTEND General Practice
DX: Z85.118 Personal history of other malignant neoplasm of bronchus and lung (principal); Z87.891 Personal history of nicotine dependence

== ENCOUNTER → 2020-07-04 | Outpatient (CLI) | payer OTHER ==
--- NOTE | 2020-07-04 10:51 | REP ---
INDICATION: ABD FINDINGS LUNG FIELD. COMPARISON: CT-guided lung biopsy 06/13/2020, CT 05/15/2020 TECHNIQUE: Noncontrast CT protocol with coronal and sagittal reconstructions provided. I logic protocol utilized. FINDINGS: Previously noted spiculated mass posteromedially in the right upper lobe has been biopsied in its contours somewhat changed. Its overall size grossly intact about 2 cm. There is to be some apical pleural thickening or scarring posteriorly on the right side near the apex. Small apical nodule on image 13, about 4 mm unchanged. Bullous emphysematous changes are seen. A curvilinear fibro atelectatic changes in the posterior segment right upper lobe again noted. In the superior segment of the right lower lobe confluent infiltrate and/or solid lesion again seen unchanged. Some adjacent pleural thickening in the medial basal segment right lower lobe in the paraspinal region. There is no pleural effusion or pneumothorax. Medial segment right middle lobe confluent density is again seen as well. All of these are unchanged. The left lung shows some minor apical fibrotic changes without pulmonary nodule, parenchymal mass or definite acute infiltrate. No pleural thickening or effusion. No calcified pleural plaques. The thoracic aorta shows some calcifications at the arch but no gross aneurysm. There is an indwelling left subclavian port catheter with tip in the SVC unchanged. There is no pathologic sized mediastinal, hilar, axillary or supraclavicular adenopathy/mass. The tracheal airway grossly intact. Central pulmonary arteries are mildly prominent and unchanged. The bone windows show the depression of the inferior endplate of the T6 with sclerotic appearance. This is not present on the 02/06/2020 study, representing interval compression. Sclerosis indicates some ongoing healing. There is a vertebral hemangioma at T8 unchanged. Remainder the vertebral bodies, sternum, manubrium, clavicles, visualized scapulae, humerus and ribs are grossly intact. The upper abdomen shows no hiatal hernia. Left hepatic lobe is mildly prominent but there is no focal hepatic mass. Spleen unremarkable. Gallbladder seen only in part and unremarkable. That portion of the pancreas included was unremarkable. Adrenal glands normal. Upper poles of kidneys intact. IMPRESSION: 1. Subpleural malignant lesion in the posterior segment right upper lobe abutting the paraspinal region. Some minor changes in contour due to interval biopsy since the 05/15/2020 CT. 2. Posterior right upper lobe below this and superior segment right lower lobe opacities unchanged from previous study with some confluent density and air bronchograms in that right lower lobe superior segment lesion. There is also medial segment right middle lobe confluent density, all of these unchanged as well. Left lung clear. 3. Inferior endplate depression of T6 with sclerosis of the endplate indicating a on going healing, new since the 02/06/2020 CT. No other significant bony finding. Stable exam. <Electronically signed by Aki Tucker > 07/04/20 [id number]
== END ==
LOC: M RAD 09:06
PROVIDERS: ATTEND Internal Medicine Pulmonary Disease
DX: R91.8 Other nonspecific abnormal finding of lung field (principal)

== ENCOUNTER → 2020-07-06 | Outpatient (CLI) | payer OTHER | LOC: M LABSMTC 11:31 | PROVIDERS: ATTEND Anesthesiology | DX: Z01.812 Encounter for preprocedural laboratory examination (principal); Z20.822 Contact with and (suspected) exposure to COVID-19 ==

== ENCOUNTER 2020-07-11 06:22 | Day surgery (SDC) | payer OTHER ==
[~2020-07-11] VITALS: Ht 165.1 cm; Wt 84.8 kg
[~2020-07-11 06:22] MED LIST changes: +LIDOCAINE 1% MDV 20ML VIAL SQ PRN
[2020-07-11] MEDS ORDERED: LIDOCAINE 4% INJ 5ML AMP INH ONE (06:30)
[2020-07-11] MEDS ORDERED: ALBUTEROL SULFATE 2.5 MG/0.5 ML INH NEB SOLN INH ONE (06:30)
[2020-07-11] MEDS ORDERED: LR 1,000 ML IV ONE (06:30)
[2020-07-11] MEDS ORDERED: LIDOCAINE VISCOUS 2% SOLN 15ML UDC As Ordered ONE (07:19)
[2020-07-11] MEDS ORDERED: propofoL 200 MG/20 ML VIAL As Ordered ONE (07:19)
[2020-07-11] MEDS ORDERED: ROCURONIUM BROMIDE 50 MG/5 ML VIAL As Ordered ONE (07:19)
[2020-07-11] MEDS ORDERED: MIDAZOLAM INJ 2MG/2ML VIAL (J2250 PER 1MG) As Ordered ONE (07:19)
[2020-07-11] MEDS ORDERED: fentaNYL 100 MCG/2 ML INJECTION (J3010) As Ordered ONE (07:19)
[2020-07-11] MEDS ORDERED: CETACAINE SPRAY 5GM As Ordered ONE (07:19)
[2020-07-11] MEDS ORDERED: dexameTHASONE 4 MG/ML 1ML VIAL (J1100 PER 1MG) As Ordered ONE (07:19)
[2020-07-11] MEDS ORDERED: LIDOCAINE 2% 100MG/5ML SDV (FOR ANES.) As Ordered ONE (07:19)
[2020-07-11] MEDS ORDERED: THROMBIN SOLN 20,000 UNITS KIT As Ordered ONE (07:19)
[2020-07-11] MEDS ORDERED: THROMBIN SOLN 5,000 UNITS VIAL As Ordered ONE (07:23)
[2020-07-11] MEDS ORDERED: EPINEPHrine 1MG/10ML SYRINGE 1.5IN As Ordered ONE (07:23)
[2020-07-11] MEDS: LIDOCAINE 4% TOPICAL SOLN 50 ML BTL As Ordered ONE (07:23)
[2020-07-11] MEDS ORDERED: LACRILUBE (AKWA TEARS) OPHTH OINT 3.5 GM As Ordered ONE (08:24)
[2020-07-11] MEDS ORDERED: ACETAMINOPHEN 1000MG 100ML IV BTL (OFIRMEV) (J0131 PER 10MG) As Ordered ONE (08:24)
[2020-07-11] MEDS ORDERED: SUGAMMADEX SODIUM 500 MG/5 ML VIAL (BRIDION) As Ordered ONE (08:25)
[2020-07-11] MEDS ORDERED: ONDANSETRON 4MG/2ML VIAL As Ordered ONE (08:25)
--- NOTE | 2020-07-11 09:23 | REP ---
INDICATION: s/p R upper lobe EBUS COMPARISON: 06/13/2020 TECHNIQUE: Portable AP view of the chest FINDINGS: [id number] remains stable with tip in the SVC/right atrium. Cardiac silhouette is within normal limits and stable. Linear focus of opacity in the right midlung zone adjacent to 2 small surgical clips is again identified along with mild bibasilar atelectasis. Two new small surgical clips are now identified in the right suprahilar region. No obvious effusion or pneumothorax. IMPRESSION: Areas of opacity and bibasilar atelectasis as described above. <Electronically signed by Suraj Castañeda > 07/11/20 0919
[2020-07-11] MEDS ORDERED: LR 1,000 ML IV SCH (09:35)
[2020-07-11] MEDS ORDERED: HYDROMORPHONE HCL 0.5 MG/ 0.5 ML SYRINGE (J1170 PER 1) IV PRN (09:35)
[2020-07-11] MEDS ORDERED: ONDANSETRON 4MG/2ML VIAL IV PRN (09:35)
[2020-07-11] MEDS ORDERED: oxyCODONE 5MG TAB PO PRN (09:35)
[2020-07-11] MEDS ORDERED: fentaNYL 100 MCG/2 ML INJECTION (J3010) IV PRN (09:35)
--- NOTE | 2020-07-11 09:43 | RO ---
OPERATIVE NOTE DATE OF OPERATION: 07/11/2020 PREOPERATIVE DIAGNOSIS: Abnormal chest CT, right upper lobe nodule posterior segment. POSTOPERATIVE DIAGNOSIS: Abnormal chest CT, right upper lobe nodule posterior segment. FINDINGS: Minimal mucus in the airway. PROCEDURE: Robotic bronchoscopy with radial ultrasound and fiducial marker placement. SURGEON: Macho [facility]obato DO, [facility] ASS[facility]ANTS: Dr. Tran, Dr. Patton SPECIMENS OBTAINED: Cytobrush and transbronchial biopsies right upper lobe posterior segment. ANESTHESIA: General. Please refer to their records for details. ESTIMATED BLOOD LOSS: Less than 5 mL, none replaced. COMPLICATIONS: No observed complications. DRAINS: None. DESCRIPTION OF PROCEDURE: After informed consent was reviewed with the patient in the preoperative area, she was brought back to OR number [id number]. The patient was intubated with an 8.5 endotracheal tube. The case was handed over to me. Time-out was performed with two patient identifiers, identifying correct site and correct procedure and correlating the patient's name, date of both with CT scanning and with the [email or web address] software platform. A 1T-190 scope was then inserted into the endotracheal tube with Cetacaine spray for anesthetization of airway and lubrication. All airways were suctioned. Trachea was midline. Kerline was fairly sharp. Right and left mainstem bronchus was normal except for minimal amounts of mucus. RB1 through 10 was inspected without endobronchial lesions. LB 1 through 10 was inspected without endobronchial lesions. The bronchoscope was then removed. Navigation was then initiated. Automatic registration was performed. Target #1 in the right upper lobe posterior segment was easily navigated to approximately 2 cm in front of the lesion, confirmed with fluoro and radial ultrasound. After confirmation of anatomic location, cytobrush was performed. This was followed by multiple transbronchial biopsies. After adequate sampling, two fiducial markers were placed, one slightly lateral to the other. One was slightly lateral to where we were sampling. The bronchoscope was removed. There was no observed hemoptysis. All airways were clear. Case was handed back over to anesthesia. The patient was extubated. No observed complications. However, post-procedure chest x-ray is pending.
[2020-07-11 10:40] VITALS: BP 143/88
== END 2020-07-11 10:40 | disposition home or self-care (01) ==
LOC: M SDC 06:22
PROVIDERS: ATTEND Internal Medicine Pulmonary Disease
DX: R91.8 Other nonspecific abnormal finding of lung field (principal); C34.11 Malignant neoplasm of upper lobe, right bronchus or lung; J44.9 Chronic obstructive pulmonary disease, unspecified; Z87.891 Personal history of nicotine dependence; E03.9 Hypothyroidism, unspecified; Z92.21 Personal history of antineoplastic chemotherapy; Z92.3 Personal history of irradiation; Z79.899 Other long term (current) drug therapy; G43.909 Migraine, unspecified, not intractable, without status migrainosus
CPT/HCPCS: 31623; 31626; 31627; 31628; 71045; 76000; 88104; 88305; A4648; J0131; J1100; J2250; J2405; J3010; S2900

== ENCOUNTER → 2020-07-18 | Outpatient (CLI) | payer OTHER ==
[~2020-07-18] MED LIST changes: -LIDOCAINE 1% MDV 20ML VIAL SQ PRN
--- NOTE | 2020-07-18 14:33 | REPMRS ---
Patient History The patient states she had a clinical breast exam in 07/2020 Patient is postmenopausal, had previous chest radiation therapy at age 52, and has history of lung cancer at age 52. Family history of breast cancer under age 50 in mother, ovarian cancer under age 50 in sister. Excisional biopsy of the left breast, March 15, 2001. Digital Woman Screen Mammo: July 18, 2020 - Exam #: [id number] Bilateral CC and MLO view(s) were taken. Technologist: Dede Galvan, Technologist Prior study comparison: March 02, 2017, digital woman screen mammo performed at [facility] [place]. February 08, 2009, bilateral digital mammo screening bilat, performed at [facility]. FINDINGS: There are scattered fibroglandular densities. The Volpara volumetric breast density category is:B. An Rybuoc-O-Moom device projects in the left axilla on MLO view. There has been no change in the appearance of the mammogram from the prior studies. There is a mild amount of scattered fibroglandular density which is fairly symmetric. There is no interval development of dominant mass, architectural distortion, or grouped microcalcification suggestive of malignancy. 3-D tomosynthesis shows no additional findings. Assessment: BI-RADS/ACR category 2 mammogram. Benign Findings. Recommendation Routine screening mammogram of both breasts in 1 year (for women over age 40). This patient's [facility] Lifetime Breast Cancer Risk is estimated at 14.3 %. This mammogram was interpreted with the aid of an FDA-approved computer-aided dectection system. Electronically Signed By: Abdias Salas MD 07/18/20 [id number]
== END ==
LOC: M WHC 13:33
PROVIDERS: ATTEND Nurse Practitioner Women's Health
DX: Z12.31 Encounter for screening mammogram for malignant neoplasm of breast (principal); Z92.3 Personal history of irradiation; Z80.3 Family history of malignant neoplasm of breast; Z80.41 Family history of malignant neoplasm of ovary

== ENCOUNTER → 2020-08-06 | Outpatient (REF) | payer OTHER ==
[2020-08-06 15:38] LABS: FREE T4 1.1 NG/DL (0.76-1.46); THYROID STIMULATING HORMONE 4.31 uIU/ML (0.358-3.740)
[2020-08-06 15:39] LABS: TOTAL 25(OH) VITAMIN D 31.9 NG/ML (30.0-100.0)
== END ==
LOC: M PLALAB 12:12
PROVIDERS: ATTEND Nurse Practitioner Family
DX: E03.2 Hypothyroidism due to medicaments and other exogenous substances (principal); E55.9 Vitamin D deficiency, unspecified

== ENCOUNTER → 2020-09-19 | Outpatient (CLI) | payer OTHER ==
[~2020-09-19] MED LIST changes: +COVI100V IM; +GASTROGRAFIN SOLUTION 30ML (Q9963) As Ordered ONE; +ISOVUE-370 76% 100ML VIAL As Ordered ONE; +LIDO1CRE42 TOP; -LIDO2.5C15 TOP
--- NOTE | 2020-09-20 04:46 | REP ---
INDICATION: LUNG CA COMPARISON: 07/04/2020 TECHNIQUE: Axial contrast enhanced images from the thoracic inlet to the upper abdomen with coronal and sagittal reformations using 75 ml Isovue 370 intravenous contrast material. This CT examination was performed using the following dose reduction techniques: Automated exposure control, adjustment of mA and/or kv according to the patient's size, and use of iterative reconstruction technique. FINDINGS: Advanced COPD/emphysematous changes with chronic scarring are again identified and relatively stable. Ill-defined areas of parenchymal opacity in the right hemithorax appear essentially stable and unchanged. No new acute consolidation, nodule or mass. No pleural effusion. No pneumothorax. Tracheobronchial tree is patent. No adenopathy. Mediastinum demonstrates stable appearance of the thoracic aorta, pulmonary vasculature, and heart/pericardium. Skeletal structures demonstrate degenerative changes and benign hemangioma. IMPRESSION: Stable chronic changes similar to 07/04/2020. No new acute consolidation, nodule, mass. No effusion. <Electronically signed by Suraj Castañeda > 09/20/20 0521
--- NOTE | 2020-09-20 05:07 | REP ---
INDICATION: LUNG CA. COMPARISON: 05/15/2020 TECHNIQUE: Axial contrast-enhanced images from the lung bases to the pubic symphysis using oral and 100 cc Isovue 370 intravenous contrast material. Delayed images of the abdomen along with coronal and sagittal reformations obtained.. This CT examination was performed using the following dose reduction techniques: Automated exposure control, adjustment of mA and/or kv according to the patient's size, and the use of iterative reconstruction technique. FINDINGS: Liver demonstrates fatty infiltration without focal hepatic lesion identified. The spleen, pancreas, gallbladder, bilateral adrenal glands and kidneys are relatively stable/normal. The enteric system is without obstruction or acute inflammatory process. Scattered sigmoid diverticula noted without acute diverticulitis. Pelvis demonstrates normal bladder and evidence for prior hysterectomy. No ascites. No free air. No intraperitoneal or retroperitoneal adenopathy. Abdominal aorta and vasculature appear normal. Musculoskeletal structures are intact and without acute osseous abnormality. IMPRESSION: No acute abdominopelvic pathology appreciated. Hepatosteatosis. No evidence for metastatic disease. <Electronically signed by Suraj Castañeda > 09/20/20 [id number]
== END ==
LOC: M RAD 09:52
PROVIDERS: ATTEND Internal Medicine Medical Oncology
DX: C34.90 Malignant neoplasm of unspecified part of unspecified bronchus or lung (principal)
CPT/HCPCS: 71260; 74177; Q9963; Q9967

== ENCOUNTER → 2020-10-01 | Outpatient (REF) | payer OTHER ==
[~2020-10-01] MED LIST changes: -GASTROGRAFIN SOLUTION 30ML (Q9963) As Ordered ONE; -ISOVUE-370 76% 100ML VIAL As Ordered ONE
[2020-10-01 13:45] LABS: FREE T4 1.06 NG/DL (0.76-1.46); THYROID STIMULATING HORMONE 2.34 uIU/ML (0.358-3.740)
== END ==
LOC: M PLALAB 09:52
PROVIDERS: ATTEND Nurse Practitioner Family
DX: E03.2 Hypothyroidism due to medicaments and other exogenous substances (principal)

== ENCOUNTER → 2021-01-07 | Outpatient (CLI) | payer OTHER ==
[~2021-01-07] MED LIST changes: +OMEP40CA4 PO; -OMEP40CA97 PO
[2021-01-07 14:58] LABS: FREE T4 1.01 NG/DL (0.76-1.46); THYROID STIMULATING HORMONE 2.11 uIU/ML (0.358-3.740); TOTAL 25(OH) VITAMIN D 25.6 NG/ML (30.0-100.0)
[2021-01-07 14:59] LABS: FOLATE 11.6 NG/ML
== END ==
LOC: M PLALAB 10:02
PROVIDERS: ATTEND Nurse Practitioner Family
DX: E03.2 Hypothyroidism due to medicaments and other exogenous substances (principal); E55.9 Vitamin D deficiency, unspecified; E53.8 Deficiency of other specified B group vitamins

== ENCOUNTER → 2021-01-15 | Outpatient (CLI) | payer OTHER ==
[~2021-01-15] MED LIST changes: +GASTROGRAFIN SOLUTION 30ML (Q9963) As Ordered ONE; +ISOVUE-370 76% 100ML VIAL As Ordered ONE
--- NOTE | 2021-01-15 16:24 | REP ---
INDICATION: LUNG CANCER FOLLOW UP. COMPARISON: Comparison CT studies are from September 19, 2020 and July 04, 2020. TECHNIQUE: Helical scanning is acquired following the intravenous injection of 100 mL of Isovue 370. 3 mm axial images are re-formatted. Coronal and sagittal MPR images are provided. FINDINGS: Preliminary digital trains dispatcher supervisor radiograph demonstrates a left-sided Fgshgk-M-Tone catheter, right perihilar fibrosis, and metallic fiducial markers in the right perihilar region. There is no evidence of hilar or mediastinal mass or adenopathy. There is a small amount of pericardial effusion visible which is unchanged from the most recent prior study of September 19, 2020. No pleural effusion is seen. There are areas of peribronchial vascular soft tissue density in a linear pattern in the right lower lobe unchanged from the Sep 19 2020 and somewhat improved when compared with the July 04, 2020 prior study. There are similar areas of linear fibrosis versus atelectasis in the right middle lobe unchanged. Fiducial markers are noted in the right middle lobe and posterior segment of the right upper lobe. The peripherally located posterior segment right upper lobe nodule identified on July 04, 2020 has decreased dramatically and appears in had to have a curvilinear morphology suggesting scarring. Emphysematous changes are again noted in the upper lobes. No new infiltrate or mass lesion is observed. Fatty infiltration of the liver is seen diffusely. The adrenal glands are unchanged. No new mass lesion. IMPRESSION: The nodular density previously noted in the right upper lobe has continued to regress, yet again improved in appearance from the September 19, 2020 study. Perihilar fibrotic changes are noted. Fiducial markers again seen on the right. Small amount of and pericardial fluid is stable. Fatty infiltration of the liver again noted. <Electronically signed by Abdias Salas > 01/15/21 [id number]
--- NOTE | 2021-01-15 16:26 | REP ---
INDICATION: LUNG CANCER FOLLOW UP. COMPARISON: Comparison abdomen pelvis CT study September 19, 2020. TECHNIQUE: Helical scanning is acquired and 3 mm axial images re-formatted. Coronal and sagittal MPR images are generated. The CT contrast enhancement dose is 100 mL of intravenous Isovue 370. Oral contrast was also administered. FINDINGS: There is diffuse fatty infiltration of the liver again noted. No focal liver lesion is seen. Mild pericardial effusion is again noted unchanged. No cyst focal splenic lesion is seen. The adrenal glands are unchanged in appearance. No pancreatic abnormality is seen. The gallbladder is unremarkable. The kidneys enhance symmetrically and are morphologically intact. No retroperitoneal mass or adenopathy is seen. The uterus is surgically absent. Urinary bladder is unremarkable. No abdominal wall defect is seen. Small and large bowel loops are unremarkable. No bony destructive lesion is appreciated. IMPRESSION: No mass or adenopathy in the abdomen and pelvis. Fatty infiltration of the liver again noted. <Electronically signed by Abdias Salas > 01/15/21 [id number]
== END ==
LOC: M RAD 13:06
PROVIDERS: ATTEND Internal Medicine Medical Oncology
DX: C34.91 Malignant neoplasm of unspecified part of right bronchus or lung (principal); K76.0 Fatty (change of) liver, not elsewhere classified
CPT/HCPCS: 71260; 74177; Q9963; Q9967

== ENCOUNTER → 2021-04-29 | Outpatient (CLI) | payer OTHER ==
[~2021-04-29] MED LIST changes: -GASTROGRAFIN SOLUTION 30ML (Q9963) As Ordered ONE; -ISOVUE-370 76% 100ML VIAL As Ordered ONE; +LEXA1TAB PO; +ONDA-84 PO; -ONDA8TAB10 PO; +POTA-151 PO; -POTA20TA6 PO
[2021-04-29 14:19] LABS: FREE T4 1.29 NG/DL (0.76-1.46); THYROID STIMULATING HORMONE 0.396 uIU/ML (0.358-3.740)
[2021-04-29 14:21] LABS: TOTAL 25(OH) VITAMIN D 32.1 NG/ML (30.0-100.0)
== END ==
LOC: M PLALAB 10:32
PROVIDERS: ATTEND Nurse Practitioner Family
DX: E03.2 Hypothyroidism due to medicaments and other exogenous substances (principal); E55.9 Vitamin D deficiency, unspecified

== ENCOUNTER → 2021-06-13 | Outpatient (CLI) | payer OTHER | LOC: M PLALAB 09:32 | PROVIDERS: ATTEND Nurse Practitioner Adult Health | DX: E03.2 Hypothyroidism due to medicaments and other exogenous substances (principal) ==

== ENCOUNTER → 2021-07-10 | Outpatient (CLI) | payer OTHER ==
[~2021-07-10] MED LIST changes: -D31000TA2 PO; +ERGO500029 PO; +VITA100093 PO
== END ==
LOC: M LABSMTC 10:09
PROVIDERS: ATTEND Anesthesiology
DX: Z01.818 Encounter for other preprocedural examination (principal); Z11.52 Encounter for screening for COVID-19

== ENCOUNTER 2021-07-15 08:35 | Day surgery (SDC) | payer OTHER ==
[~2021-07-15] VITALS: Ht 165.1 cm; Wt 83.9 kg
[~2021-07-15 08:35] MED LIST changes: +NS 1,000 ML IV ONE
[2021-07-15] MEDS ORDERED: LIDOCAINE 2% 100MG/5ML SDV (FOR ANES.) As Ordered ONE (09:55)
[2021-07-15] MEDS ORDERED: propofoL 200 MG/20 ML VIAL As Ordered ONE (09:55)
[2021-07-15 11:53] VITALS: BP 122/84
== END 2021-07-15 11:54 | disposition home or self-care (01) ==
LOC: M OPP 08:35
PROVIDERS: ATTEND Internal Medicine Gastroenterology
DX: K63.5 Polyp of colon (principal); K55.20 Angiodysplasia of colon without hemorrhage; K57.30 Diverticulosis of large intestine without perforation or abscess without bleeding; K64.8 Other hemorrhoids; Z86.010 Personal history of colon polyps; Z80.0 Family history of malignant neoplasm of digestive organs; Z80.3 Family history of malignant neoplasm of breast; Z79.899 Other long term (current) drug therapy

== ENCOUNTER → 2021-07-24 | Outpatient (CLI) | payer OTHER ==
[~2021-07-24] MED LIST changes: +GASTROGRAFIN SOLUTION 30ML (Q9963) As Ordered ONE; +ISOVUE-370 76% 100ML VIAL As Ordered ONE; -NS 1,000 ML IV ONE
== END ==
LOC: M RAD 08:03
PROVIDERS: ATTEND Internal Medicine Medical Oncology
DX: C34.90 Malignant neoplasm of unspecified part of unspecified bronchus or lung (principal); D37.6 Neoplasm of uncertain behavior of liver, gallbladder and bile ducts
CPT/HCPCS: 71260; 74177; Q9963; Q9967

== ENCOUNTER → 2021-10-22 | Outpatient (CLI) | payer MEDICARE, OTHER ==
[~2021-10-22] MED LIST changes: -GASTROGRAFIN SOLUTION 30ML (Q9963) As Ordered ONE; -ISOVUE-370 76% 100ML VIAL As Ordered ONE
== END ==
LOC: M WHC 08:07
PROVIDERS: ATTEND Nurse Practitioner Adult Health
DX: Z12.31 Encounter for screening mammogram for malignant neoplasm of breast (principal); E03.2 Hypothyroidism due to medicaments and other exogenous substances

== ENCOUNTER → 2021-10-22 | Outpatient (CLI) | payer MEDICARE, OTHER | LOC: M PLALAB 09:07 | PROVIDERS: ATTEND Nurse Practitioner Adult Health | DX: E03.2 Hypothyroidism due to medicaments and other exogenous substances (principal) ==

== ENCOUNTER → 2022-01-22 | Outpatient (CLI) | payer MEDICARE, OTHER ==
[~2022-01-22] MED LIST changes: -DOXY150T9 PO; +FERR325T3 PO; +GASTROGRAFIN SOLUTION 30ML (Q9963) As Ordered ONE; +GOLO PO; +ISOVUE-370 76% 100ML VIAL As Ordered ONE; +[UNRECOGNIZED DRUG - CODE] PO
== END ==
LOC: M RAD 11:29
PROVIDERS: ATTEND Internal Medicine Medical Oncology
DX: C34.90 Malignant neoplasm of unspecified part of unspecified bronchus or lung (principal)
CPT/HCPCS: 71260; 74177; Q9963; Q9967

== ENCOUNTER → 2022-05-19 | Outpatient (REF) | payer MEDICARE, OTHER ==
[~2022-05-19] MED LIST changes: +ALBU8.5H INH; -GASTROGRAFIN SOLUTION 30ML (Q9963) As Ordered ONE; -ISOVUE-370 76% 100ML VIAL As Ordered ONE
== END ==
LOC: M SFHCPLAZ 08:34
PROVIDERS: ATTEND Nurse Practitioner Adult Health
DX: Z53.9 Procedure and treatment not carried out, unspecified reason (principal)

== ENCOUNTER → 2022-05-20 | Outpatient (CLI) | payer OTHER ==
[2022-05-20 14:38] LABS: VITAMIN B12 LEVEL 408 PG/ML (211-911)
[2022-05-20 14:39] LABS: THYROID STIMULATING HORMONE 2.013 uIU/ML (0.55-4.78)
[2022-05-20 14:41] LABS: TOTAL 25(OH) VITAMIN D 28.8 NG/ML (20.0-100.0)
[2022-05-20 14:48] LABS: ALBUMIN 4.3 G/DL (3.2-5.2); ALKALINE PHOSPHATASE 140 U/L (46-116); ALT/SGPT 30 U/L (7.0-40); AST/SGOT 21 U/L (<34); BILIRUBIN,TOTAL 0.4 MG/DL (0.3-1.2); BLOOD UREA NITROGEN 10 MG/DL (9-23); CALCIUM LEVEL 9.7 MG/DL (8.5-10.1); CARBON DIOXIDE LEVEL 31 MMOL/L (20-31); CHLORIDE LEVEL 98 MMOL/L (98-107); CHOLESTEROL LEVEL 247 MG/DL (<200); CHOLESTEROL RISK RATIO 3.47 (<5); GLOMERULAR FILTRATION RATE > 60.0 (>51); GLUCOSE, FASTING 95 MG/DL (60-100); HDL CHOLESTEROL 71.1 MG/DL (>40); LDL CHOLESTEROL 151.9 MG/DL (<100); NON-HDL-C 176 MG/DL; SODIUM LEVEL 138 MMOL/L (136-145); TRIGLYCERIDES LEVEL 120 MG/DL (<150)
== END ==
LOC: M PLALAB 11:20
PROVIDERS: ATTEND Nurse Practitioner Adult Health
DX: E03.2 Hypothyroidism due to medicaments and other exogenous substances (principal); E55.9 Vitamin D deficiency, unspecified; E53.8 Deficiency of other specified B group vitamins; Z13.220 Encounter for screening for lipoid disorders

== ENCOUNTER → 2022-06-02 | Outpatient (CLI) | payer MEDICARE, OTHER ==
[~2022-06-02] MED LIST changes: +GASTROGRAFIN SOLUTION 30ML As Ordered ONE; +ISOVUE-370 76% 100ML VIAL As Ordered ONE; +SUCR1TA PO
== END ==
LOC: M RAD 14:58
PROVIDERS: ATTEND Internal Medicine Medical Oncology
DX: C34.90 Malignant neoplasm of unspecified part of unspecified bronchus or lung (principal); K44.9 Diaphragmatic hernia without obstruction or gangrene
CPT/HCPCS: 71260; 74177; Q9963; Q9967

== ENCOUNTER → 2022-06-09 | Outpatient (CLI) | payer MEDICARE, OTHER ==
[~2022-06-09] MED LIST changes: -GASTROGRAFIN SOLUTION 30ML As Ordered ONE; -ISOVUE-370 76% 100ML VIAL As Ordered ONE
== END ==
LOC: M RAD 14:41
PROVIDERS: ATTEND Internal Medicine Medical Oncology
DX: M79.605 Pain in left leg (principal)

== ENCOUNTER → 2022-08-06 | Outpatient (CLI) | payer MEDICARE, OTHER ==
[~2022-08-06] MED LIST changes: +BUPR150T12 PO; +FLUT1BLS3; +PANT40TA29 PO; +PROA1AER2
== END ==
LOC: M LABSMTC 10:17
PROVIDERS: ATTEND Anesthesiology
DX: Z01.812 Encounter for preprocedural laboratory examination (principal)

== ENCOUNTER 2022-08-11 09:14 | Day surgery (SDC) | payer MEDICARE ==
[~2022-08-11] VITALS: Ht 165.1 cm; Wt 81.2 kg
[~2022-08-11 09:14] MED LIST changes: +LIDOCAINE 2% 100MG/5ML SDV (FOR ANES.) As Ordered ONE; +NS 1,000 ML IV ONE; +fentaNYL 100 MCG/2 ML INJECTION As Ordered ONE; +propofoL 500 MG/50 ML VIAL As Ordered ONE
[2022-08-11] MEDS ORDERED: ONDANSETRON 4MG 2ML VIAL As Ordered ONE (10:36)
[2022-08-11] MEDS ORDERED: propofoL 200 MG/20 ML VIAL As Ordered ONE (10:59)
[2022-08-11 11:30] VITALS: BP 114/66
== END 2022-08-11 11:44 | disposition home or self-care (01) ==
LOC: M OPP 09:14
PROVIDERS: ATTEND Internal Medicine Gastroenterology
DX: K55.20 Angiodysplasia of colon without hemorrhage (principal); K57.30 Diverticulosis of large intestine without perforation or abscess without bleeding; K64.8 Other hemorrhoids; K63.89 Other specified diseases of intestine; D50.9 Iron deficiency anemia, unspecified; K31.89 Other diseases of stomach and duodenum; J44.9 Chronic obstructive pulmonary disease, unspecified; Z85.118 Personal history of other malignant neoplasm of bronchus and lung; Z79.1 Long term (current) use of non-steroidal anti-inflammatories (NSAID); Z79.51 Long term (current) use of inhaled steroids; Z79.890 Hormone replacement therapy; Z79.899 Other long term (current) drug therapy; Z92.3 Personal history of irradiation; Z92.21 Personal history of antineoplastic chemotherapy; Z84.1 Family history of disorders of kidney and ureter; Z80.3 Family history of malignant neoplasm of breast
CPT/HCPCS: 43239; 45380; 88305; J2405; J3010

== ENCOUNTER → 2022-10-24 | Outpatient (CLI) | payer MEDICARE ==
[~2022-10-24] MED LIST changes: +CYAN-1 PO; -CYAN100050 PO; +GUAI1SOL7 PO; -LIDOCAINE 2% 100MG/5ML SDV (FOR ANES.) As Ordered ONE; -NS 1,000 ML IV ONE; -fentaNYL 100 MCG/2 ML INJECTION As Ordered ONE; -propofoL 500 MG/50 ML VIAL As Ordered ONE
== END ==
LOC: M WHC 09:51
PROVIDERS: ATTEND Nurse Practitioner Adult Health
DX: Z12.31 Encounter for screening mammogram for malignant neoplasm of breast (principal)

== ENCOUNTER → 2022-11-13 | Outpatient (CLI) | payer MEDICARE ==
[~2022-11-13] MED LIST changes: +GASTROGRAFIN SOLUTION 30ML As Ordered ONE; +ISOVUE-370 76% 100ML VIAL As Ordered ONE
== END ==
LOC: M RAD 12:21
PROVIDERS: ATTEND Internal Medicine Medical Oncology
DX: C34.91 Malignant neoplasm of unspecified part of right bronchus or lung (principal)
CPT/HCPCS: 71260; 74177; Q9963; Q9967

== ENCOUNTER → 2023-03-20 | Outpatient (CLI) | payer MEDICARE, OTHER ==
[~2023-03-20] MED LIST changes: -GASTROGRAFIN SOLUTION 30ML As Ordered ONE; -ISOVUE-370 76% 100ML VIAL As Ordered ONE; -LIDO1CRE42 TOP; +LIDO30CR18 TOP; +LORA-1041 PO; -LORA-674 PO
== END ==
LOC: M RAD 13:21
PROVIDERS: ATTEND Internal Medicine Medical Oncology
DX: C34.90 Malignant neoplasm of unspecified part of unspecified bronchus or lung (principal); M54.9 Dorsalgia, unspecified; M19.031 Primary osteoarthritis, right wrist; M19.032 Primary osteoarthritis, left wrist; M19.071 Primary osteoarthritis, right ankle and foot
CPT/HCPCS: 78306; A9503

== ENCOUNTER → 2023-03-23 | Outpatient (CLI) | payer MEDICARE, MEDICAID ==
[~2023-03-23] VITALS: Ht 165.1 cm; Wt 79.1 kg
[~2023-03-23] MED LIST changes: +LIDOCAINE 1% MDV 20ML VIAL As Ordered ONE; +LIDOCAINE W/EPINEPHRINE 1% 20ML VIAL As Ordered ONE; +MIDAZOLAM INJ 2MG/2ML VIAL As Ordered ONE; +NS 1,000 ML IV SCH; +ceFAZolin 2 GM/D5W 50 ML IV BAG As Ordered ONE; +ceFAZolin SOD 2 GM in IV 1 EA IV ONE; +fentaNYL 100 MCG/2 ML INJECTION As Ordered ONE
[2023-03-23 07:20] VITALS: TEMP 96.7
[2023-03-23 09:50] VITALS: BP 163/95; O2SAT 98
== END ==
LOC: M IRPRO 06:55
PROVIDERS: ATTEND Internal Medicine Medical Oncology
DX: C34.90 Malignant neoplasm of unspecified part of unspecified bronchus or lung (principal)
CPT/HCPCS: 36589; J0690

== ENCOUNTER → 2023-11-16 | Outpatient (CLI) | payer MEDICAID, MEDICARE ==
[~2023-11-16] MED LIST changes: -AZEL0.055 NARES; +AZEL1SPR4 NARES; +BENZ200C70 PO; -LIDOCAINE 1% MDV 20ML VIAL As Ordered ONE; -LIDOCAINE W/EPINEPHRINE 1% 20ML VIAL As Ordered ONE; -MIDAZOLAM INJ 2MG/2ML VIAL As Ordered ONE; -NS 1,000 ML IV SCH; -ceFAZolin 2 GM/D5W 50 ML IV BAG As Ordered ONE; -ceFAZolin SOD 2 GM in IV 1 EA IV ONE; -fentaNYL 100 MCG/2 ML INJECTION As Ordered ONE
== END ==
LOC: M RAD 10:04
PROVIDERS: ATTEND Internal Medicine Medical Oncology
DX: Z12.2 Encounter for screening for malignant neoplasm of respiratory organs (principal); R91.8 Other nonspecific abnormal finding of lung field; Z87.891 Personal history of nicotine dependence

== ENCOUNTER → 2023-12-10 | Outpatient (CLI) | payer MEDICARE, OTHER | LOC: M WHC 15:23 | PROVIDERS: ATTEND Nurse Practitioner Adult Health | DX: Z12.31 Encounter for screening mammogram for malignant neoplasm of breast (principal) ==

== ENCOUNTER → 2024-02-09 | Outpatient (REF) | payer MEDICARE, OTHER | LOC: M SFHCWAGY 18:04 | PROVIDERS: ATTEND Nurse Practitioner Family | DX: Z11.51 Encounter for screening for human papillomavirus (HPV) (principal); Z12.72 Encounter for screening for malignant neoplasm of vagina | CPT/HCPCS: 87624; G0123 ==

== ENCOUNTER → 2024-03-29 | Outpatient (CLI) | payer MEDICARE, OTHER ==
[2024-03-29 10:22] LABS: ALBUMIN 3.7 G/DL (3.2-5.2); ALKALINE PHOSPHATASE 107 U/L (35-104); ALT/SGPT 23 U/L (7.0-40); AST/SGOT 10 U/L (<34); BILIRUBIN,TOTAL 0.4 MG/DL (0.3-1.2); BLOOD UREA NITROGEN 14 MG/DL (9-23); CALCIUM LEVEL 9.4 MG/DL (8.5-10.1); CARBON DIOXIDE LEVEL 33 MMOL/L (20-31); CHLORIDE LEVEL 104 MMOL/L (98-107); CHOLESTEROL LEVEL 274 MG/DL (<200); CHOLESTEROL RISK RATIO 3.93 (<5); CREATININE FOR GFR 0.85 MG/DL (0.55-1.30); GLOMERULAR FILTRATION RATE > 60.0 (>51); GLUCOSE, FASTING 99 MG/DL (60-100); HDL CHOLESTEROL 69.6 MG/DL (>40); LDL CHOLESTEROL 160.6 MG/DL (<100); NON-HDL-C 204.4 MG/DL; POTASSIUM SERUM 4.5 MMOL/L (3.5-5.1); SODIUM LEVEL 141 MMOL/L (136-145); TOTAL PROTEIN 6.9 G/DL (5.7-8.2); TRIGLYCERIDES LEVEL 219 MG/DL (<150)
[2024-03-29 10:33] LABS: FREE T4 1.07 NG/DL (0.89-1.76); THYROID STIMULATING HORMONE 2.863 uIU/ML (0.55-4.78)
[2024-03-29 10:34] LABS: VITAMIN B12 LEVEL 645 PG/ML (211-911)
== END ==
LOC: M PLALAB 07:30
PROVIDERS: ATTEND Nurse Practitioner Adult Health
DX: Z00.00 Encounter for general adult medical examination without abnormal findings (principal); E03.2 Hypothyroidism due to medicaments and other exogenous substances; Z13.220 Encounter for screening for lipoid disorders; E55.9 Vitamin D deficiency, unspecified

== ENCOUNTER → 2024-04-18 | Outpatient (CLI) | payer MEDICARE, OTHER ==
[~2024-04-18] MED LIST changes: -ADV250INH; +ADVA1AER9
== END ==
LOC: M WHC 07:38
PROVIDERS: ATTEND Nurse Practitioner Adult Health
DX: R10.11 Right upper quadrant pain (principal)

== ENCOUNTER → 2024-08-24 | Outpatient (REF) | payer MEDICARE ==
[~2024-08-24] MED LIST changes: -ADV500INH INH; +ADVA1AER10 INH
== END ==
LOC: M SFHCDERM 17:29
PROVIDERS: ATTEND Physician Assistant
DX: T14.8XXA Other injury of unspecified body region, initial encounter (principal)

== ENCOUNTER → 2024-11-22 | Outpatient (CLI) | payer MEDICARE | LOC: M RAD 10:11 | PROVIDERS: ATTEND Internal Medicine Medical Oncology | DX: Z12.2 Encounter for screening for malignant neoplasm of respiratory organs (principal); Z87.891 Personal history of nicotine dependence ==

== ENCOUNTER 2025-01-06 10:56 | Emergency (ER) | payer MEDICARE, OTHER ==
[~2025-01-06] VITALS: Ht 165.1 cm; Wt 79.3 kg
[2025-01-06] MEDS ORDERED: LEVO88TA3 (11:06)
[2025-01-06] MEDS: ACETAMINOPHEN *IV* 1,000 MG in IV 1 EA IV ONE (12:40)
[2025-01-06 12:55] LABS: BASO # 0.1 10^3/uL (0.0-0.2); BASO % 1.3 % (0.0-1.0); EOS # 0.3 10^3/uL (0.0-0.5); EOS % 4.9 % (0.0-3.0); LYMPH # 1.2 10^3/uL (1.5-5.0); LYMPH % 22.7 % (24.0-44.0); MONO # 0.4 10^3/uL (0.0-0.8); MONO % 7.6 % (2.0-8.0); NEUTROPHILS # 3.3 10^3/uL (1.5-8.5); NEUTROPHILS % 63.1 % (36.0-66.0); PLATELET COUNT, AUTOMATED 308 10^3/uL (150-450)
[2025-01-06 13:03] LABS: ERYTHROCYTE SEDIMENTATION RATE 34 mm/hr (0-30)
[2025-01-06] MEDS: dexAMETHasone 4 MG/ML 1 ML VIAL IV ONE (13:16)
[2025-01-06 13:20] LABS: C REACTIVE PROTEIN QUANTITATIV 0.59 MG/DL (<1.0); CALCIUM LEVEL 9.6 MG/DL (8.3-10.6); CARBON DIOXIDE LEVEL 33 MMOL/L (20-31); CHLORIDE LEVEL 101 MMOL/L (98-107); CREATININE FOR GFR 0.72 MG/DL (0.55-1.30); GLOMERULAR FILTRATION RATE > 90.0 (>45); POTASSIUM SERUM 4.9 MMOL/L (3.5-5.1); SODIUM LEVEL 141 MMOL/L (136-145)
[2025-01-06 14:45] VITALS: TEMP 97.9
[2025-01-06 20:15] VITALS: BP 110/75; O2SAT 96
[2025-01-06] MEDS ORDERED: UBRO100T PO (20:33)
[2025-01-06] MEDS ORDERED: PRED50TA57 PO (20:34)
== END 2025-01-06 20:54 | disposition home or self-care (01) ==
LOC: M ED 10:56
DX: G43.909 Migraine, unspecified, not intractable, without status migrainosus (principal); J44.9 Chronic obstructive pulmonary disease, unspecified; C34.90 Malignant neoplasm of unspecified part of unspecified bronchus or lung; J32.1 Chronic frontal sinusitis; Z91.09 Other allergy status, other than to drugs and biological substances; Z79.52 Long term (current) use of systemic steroids; Z79.899 Other long term (current) drug therapy
CPT/HCPCS: 70450; 70551; 80048; 85025; 85652; 86140; 96374; 96375; 99284; J0131; J1100; J2765

== ENCOUNTER → 2025-01-23 | Outpatient (CLI) | payer MEDICARE, OTHER ==
[~2025-01-23] MED LIST changes: +LEVO88TA3; +PRED50TA57 PO; +UBRO100T PO
[2025-01-23 14:43] LABS: CHOLESTEROL LEVEL 292.0 MG/DL (<200); CHOLESTEROL RISK RATIO 3.33 (<5); LDL CHOLESTEROL 166.1 MG/DL (<100); MAGNESIUM LEVEL 2.1 MG/DL (1.8-2.4); NON-HDL-C 204.5 MG/DL; TRIGLYCERIDES LEVEL 192.0 MG/DL (<150)
[2025-01-23 14:48] LABS: FREE T4 1.65 NG/DL (0.89-1.76)
[2025-01-23 14:50] LABS: VITAMIN B12 LEVEL 444.0 PG/ML (211-911)
== END ==
LOC: M PLALAB 09:15
PROVIDERS: ATTEND Nurse Practitioner Adult Health
DX: E03.2 Hypothyroidism due to medicaments and other exogenous substances (principal); K30 Functional dyspepsia; E53.8 Deficiency of other specified B group vitamins; E55.9 Vitamin D deficiency, unspecified; Z13.220 Encounter for screening for lipoid disorders

== ENCOUNTER → 2025-03-06 | Outpatient (CLI) | payer MEDICARE, OTHER | LOC: M WHC 07:35 | PROVIDERS: ATTEND Nurse Practitioner Family | DX: Z12.31 Encounter for screening mammogram for malignant neoplasm of breast (principal); R92.323 Mammographic fibroglandular density, bilateral breasts ==

== ENCOUNTER → 2025-04-27 | Outpatient (CLI) | payer MEDICARE ==
[~2025-04-27] MED LIST changes: +ATOR1TAB21
== END ==
LOC: M PLALAB 13:33
PROVIDERS: ATTEND Psychiatry & Neurology Neurology
DX: R51.9 Headache, unspecified (principal)